=== PATIENT | female | born 1945 | race African-American/Black ===

== ENCOUNTER 2016-03-17 21:15 | Emergency (ER) | payer MEDICARE, MEDICAID ==
[2016-03-17 21:23] VITALS: BP 143/59
[2016-03-17] MEDS ORDERED: Ketorolac INJ* 30 MG/ML 1 ML VIAL IM ONE (21:47)
[2016-03-17] MEDS ORDERED: HYDROcodone/ACETAMIN 5-325 MG* 1 TAB PO ONE ×2 (21:47→22:22)
--- NOTE | 2016-03-17 22:02 | RAD ---
INDICATION: Right shoulder pain COMPARISON: None TECHNIQUE: Routine frontal and Y views were obtained. FINDINGS: There are no acute bony findings. There is a.c. and glenohumeral osteoarthritis and there are findings of calcific tendinitis. The right lung is clear. IMPRESSION: MODERATE OSTEOARTHRITIS WITH CALCIFIC TENDINITIS.
--- NOTE | 2016-03-17 22:50 | ED ---
Kwabena Fox Billy, scribed for Yobani Rodriguez MD on 03/17/16 at 2158 . Upper Extremity Pain - HPI Summary HPI Summary: Patient is a 71 year-old female coming to [facility] presenting with constant posterior right shoulder pain starting tonight. Severity 10/10. Pain is worse with active ROM and touch. She states that the pain began immediately after she lost her balance and fell backwards onto her shoulder. No head injury or LOC. - History of Current Complaint Chief Complaint: EDShoulderClavicleInj Stated Complaint: FALL/ RIGHT SHOULDER PAIN Time Seen by Provider: 03/17/16 21:37 Hx Obtained From: Patient Mechanism Of Injury: Fall From A Standing Position Onset/Duration: Started Hours Ago Timing: Constant Severity Initially: Moderate Severity Currently: Moderate Pain Location: Shoulder Aggravating Factor(s): Movement, Other - touch Alleviating Factor(s): Nothing Associated Signs & Symptoms: Positive: Negative - Allergies/Home Medications Allergies/Adverse Reactions: Allergies Allergy/AdvReac Type Severity Reaction Status Date / Time No Known Allergies Allergy Verified 08/02/12 13:30 PMH/Surg Hx/FS Hx/Imm Hx Cardiovascular History: Reports: Hx Hypertension, Other Cardiovascular Problems/ Disorders - 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 leaky heart valve, mild GI History: Reports: Hx Gastroesophageal Reflux Disease Musculoskeletal History: Reports: Hx Arthritis, Hx Back Problems, Other Musculoskeletal History - degenerative joint disease, disc disease Sensory History: Reports: Hx Vision Problem Opthamlomology History: Reports: Hx Vision Problem Psychiatric History: Reports: Hx Depression - Cancer History Hx Chemotherapy: No Hx Radiation Therapy: No - Surgical History Surgery Procedure, Year, and Place: hysterectomy 30 years ago, abd surgery for removal of benign masses about 6 years ago---All done at [facility] Hx Anesthesia Reactions: No Infectious Disease History: No Infectious Disease History: Denies: Traveled Outside the [place] in Last 30 Days - Family History Known Family History: Positive: Other - FHx of breast cancer. - Social History Alcohol Use: None Substance Use Type: Reports: None Smoking Status (MU): Never Smoked Tobacco Review of Systems Negative: Fever Positive: Arthralgia - right shoulder All Other Systems Reviewed And Are Negative: Yes Physical Exam - Summary Physical Exam Summary: Vital signs: reviewed General: Patient is comfortable lying in stretcher with no signs of distress HEENT: within normal limits Lungs: CTA B/L CVS: S1 & S2 present. No murmurs appreciated. Abdomen: Soft, NT, Positive BS. Extremities: FROM x4, right shoulder w/o ecchymosis or deformity. Good pulses and capillary refill. Neuro: Alert and oriented x 3. No acute neurological deficits. Skin: Warm and dry Triage Information Reviewed: Yes Vital Signs On Initial Exam: Initial Vitals Temp Pulse Resp BP Pulse Ox 98.2 F 63 16 143/59 100 03/17/16 21:20 03/17/16 21:20 03/17/16 21:20 03/17/16 21:20 03/17/16 21:20 Vital Signs Reviewed: Yes Diagnostics - Vital Signs Vital Signs Temp Pulse Resp BP Pulse Ox 03/17/16 21:20 98.2 F 63 16 143/59 100 - Laboratory Lab Statement: Any lab studies that have been ordered have been reviewed, and results considered in the medical decision making process. - Radiology Right Shoulder X-Ray Radiology Interpretation Completed By: Radiologist - MODERATE OSTEOARTHRITIS WITH CALCIFIC TENDINITIS. Course/Dx - Course Assessment/Plan: Patient is a 71 year-old female coming to [facility] presenting with constant posterior right shoulder pain starting tonight. Severity 10/10. Pain is worse with active ROM and touch. She states that the pain began immediately after she lost her balance and fell backwards onto her shoulder. No head injury or LOC. Shoulder x-ray shows no acute fracture or dislocation. In the ED course, she was given Toradol and Forsan, and her symptoms have improved. I did not do a head CT or C spine CT since patient denies any MUNGUIA or neck pain. She denies any LOC. Since there is no fracture or dislocation, she will be discharged home to follow up with PCP. She is hemodynamically stable, A&Ox3. - Diagnoses Provider Diagnoses: Shoulder pain, Calcific tendinitis Discharge - Discharge Plan Condition: Stable Disposition: HOME Patient Education Materials: Shoulder Pain (ED), Calcific Tendinitis (ED) Referrals: Ryan Swain MD [Primary Care Provider] - The documentation as recorded by the Kwabena méndez Billy accurately reflects the service I personally performed and the decisions made by me, Yobani Rodriguez MD.
== END 2016-03-17 22:44 | disposition home or self-care (01) ==
LOC: ED 21:15
DX: S49.91XA Unspecified injury of right shoulder and upper arm, initial encounter (principal); W19.XXXA Unspecified fall, initial encounter; Y93.9 Activity, unspecified; Y92.9 Unspecified place or not applicable; M19.011 Primary osteoarthritis, right shoulder; M75.31 Calcific tendinitis of right shoulder; I10 Essential (primary) hypertension; K21.9 Gastro-esophageal reflux disease without esophagitis
CPT/HCPCS: 96372; 99282; J1885

== ENCOUNTER 2016-07-24 10:29 | Observation (INO) | payer MEDICARE, MEDICAID ==
--- NOTE | 2016-07-24 12:14 | RAD ---
HISTORY: Fall, head injury COMPARISONS: August 02, 2012 TECHNIQUE: Multiple contiguous axial CT scans were obtained of the head without intravenous contrast. FINDINGS: HEMORRHAGE/INFARCT: There is a left frontal subdural hematoma further described below. There is no parenchymal hemorrhage. There is no acute infarct. MASSES/SHIFT: There is a 0.7 cm of subfalcine shift to the right EXTRA-AXIAL SPACES: There is a left frontal convexity subdural hematoma measuring 1.7 cm in depth. This is intermediate attenuation, consistent with a subacute subdural hematoma. There is mass effect on the adjacent brain parenchyma with subfalcine shift to the right. SULCI AND VENTRICLES: There is sulcal effacement along the left frontal subdural hematoma. CEREBRUM: There is a chronic lacunar infarct of the left caudate head. There is a chronic lacunar infarct of the right basal ganglia. BRAINSTEM: There are no focal parenchymal abnormalities. CEREBELLUM: There are no focal parenchymal abnormalities. VESSELS: The vessels are grossly normal. PARANASAL SINUSES: The paranasal sinuses are clear. ORBITS: The orbits are unremarkable. BONES AND SOFT TISSUE: No bone or soft tissue abnormalities are noted. OTHER: None IMPRESSION: SUBACUTE LEFT FRONTAL SUBDURAL HEMATOMA MEASURING 1.7 CM IN DEPTH WITH 0.7 CM OF SUBFALCINE SHIFT TO THE RIGHT. PRELIMINARY FINDINGS WERE DISCUSSED WITH MICH FAITH, IN THE EMERGENCY DEPARTMENT, AT APPROXIMATELY 12:10 PM ON JULY 24, 2016.
--- NOTE | 2016-07-24 12:18 | ED ---
Adult Trauma - HPI Summary HPI Summary: 71F presents with fall out of bed today. She states she was rolling out of bed to get up and landed on the left side of her head and left shoulder. She denies any pain except for her chronic pain in her right shoulder. She is on aggrenox. She denies any headache, vomiting, or nausea. She denies any LOC. She states that the pain in her right shoulder is same as usually. She states she did have a previous stroke on her left side 5 years ago and has chronic weakness on left side. She denies any chest pain, SOB, abdominal pain, lower extremity pain. - History of Current Complaint Chief Complaint: EDGeneral Stated Complaint: FALL Time Seen by Provider: 07/24/16 11:07 Pain Intensity: 0 - Allergy/Home Medications Allergies/Adverse Reactions: Allergies Allergy/AdvReac Type Severity Reaction Status Date / Time No Known Allergies Allergy Verified 08/02/12 13:30 PMH/Surg Hx/FS Hx/Imm Hx Endocrine/Hematology History: Reports: Hx Anticoagulant Therapy Cardiovascular History: Reports: Hx Hypertension, Other Cardiovascular Problems/ Disorders - 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 leaky heart valve, mild GI History: Reports: Hx Gastroesophageal Reflux Disease Musculoskeletal History: Reports: Hx Arthritis, Hx Back Problems, Other Musculoskeletal History - degenerative joint disease, disc disease Sensory History: Reports: Hx Vision Problem Opthamlomology History: Reports: Hx Vision Problem Psychiatric History: Reports: Hx Depression - Cancer History Hx Chemotherapy: No Hx Radiation Therapy: No - Surgical History Surgery Procedure, Year, and Place: hysterectomy 30 years ago, abd surgery for removal of benign masses about 6 years ago---All done at [facility] Hx Anesthesia Reactions: No Infectious Disease History: No Infectious Disease History: Denies: Traveled Outside the [place] in Last 30 Days - Family History Known Family History: Positive: Cardiac Disease, Other - FHx of breast cancer. - Social History Alcohol Use: None Substance Use Type: Reports: None Smoking Status (MU): Never Smoked Tobacco Review of Systems Negative: Fever Negative: Chest Pain Negative: Shortness Of Breath Negative: Vomiting, Nausea Positive: Myalgia - right shoulder pain chronic Negative: Headache All Other Systems Reviewed And Are Negative: Yes Physical Exam Triage Information Reviewed: Yes Vital Signs On Initial Exam: Initial Vitals Temp Pulse Resp BP Pulse Ox 98.8 F 63 16 141/61 97 07/24/16 10:38 07/24/16 10:38 07/24/16 10:38 07/24/16 10:38 07/24/16 10:38 Vital Signs Reviewed: Yes Appearance: Positive: Well-Appearing Skin: Positive: Warm, Dry Head/Face: Positive: Normal Head/Face Inspection, Other - no step off, racoon eyes, gibbs sign Eyes: Positive: Normal, EOMI, DOMINGA, Conjunctiva Clear ENT: Positive: Normal ENT inspection, Pharynx normal, TMs normal Neck: Positive: Nontender, Other: - no neck pain Respiratory/Lung Sounds: Positive: Clear to Auscultation, Breath Sounds Present Cardiovascular: Positive: Normal, RRR Abdomen Description: Positive: Nontender, Soft Musculoskeletal: Positive: Strength/ROM Intact - of all extremities, Other - good pulses Neurological: Positive: Sensory/Motor Intact, Alert, Oriented to Person Place, Time, CN Intact II-III - Ad Coma Scale Best Eye Response: 4 - Spontaneous Best Motor Response: 6 - Obeys Commands Best Verbal Response: 5 - Oriented Coma Scale Total: 15 Diagnostics - Vital Signs Vital Signs Temp Pulse Resp BP Pulse Ox 07/24/16 10:44 98.8 F 63 16 141/61 97 07/24/16 10:38 98.8 F 63 16 141/61 97 - Laboratory Result Diagrams: 07/24/16 12:53 07/24/16 12:53 Lab Statement: Any lab studies that have been ordered have been reviewed, and results considered in the medical decision making process. - CT brain CT Interpretation: Positive (See Comments) - IMPRESSION: SUBACUTE LEFT FRONTAL SUBDURAL HEMATOMA MEASURING 1.7 CM IN DEPTH WITH 0.7 CM OF SUBFALCINE SHIFT TO THE RIGHT. PRELIMINARY FINDINGS WERE DISCUSSED WITH MICH FAITH, IN THE EMERGENCY DEPARTMENT, AT APPROXIMATELY 12:10 PM ON JULY 24, 2016. CT Interpretation Completed By: Radiologist Adult Trauma Course/Dx - Course Course Of Treatment: 71F presents with fall out of bed today onto left side. Is taking aggrenox. denies any pain except chronic right shoulder pain. denies any LOC, nausea or vomiting. normal neuro exam. CT shows subdural. spoke with dr diaz who sent PA to see in ED who will admit. - Diagnoses Differential Diagnosis/HQI/PQRI: Positive: Contusion(s), Fracture, Hematoma(s) Provider Diagnoses: Subdural hematoma - Physician Notifications Discussed Care Of Patient With: dr diaz Time Discussed With Above Provider: 12:44 - will send PA to see in ED Discharge - Discharge Plan Condition: Stable Disposition: ADMITTED TO [facility] Referrals: Ryan Swain MD [Primary Care Provider] -
[2016-07-24 13:23] LABS: Hematocrit 41 % (35-47); Hemoglobin 13.1 g/dl (12.0-16.0); Mean Corpuscular HGB Conc 32 g/dl (31-36); Mean Corpuscular Hemoglobin 29 pg (27-31); Mean Corpuscular Volume 91 fL (80-97); Mean Platelet Volume 9 um3 (7.4-10.4); Red Blood Count 4.52 10^6/ul (4.0-5.4); Red Cell Distribution Width 13 % (10.5-15)
[2016-07-24 13:38] LABS: Albumin 3.8 g/dL (3.2-5.2); BUN/Creatinine Ratio 11.8 (8-20); Calcium 9.3 mg/dL (8.6-10.3); EGFR African American 63.2 (>60); EGFR Non-African American 49.1 (>60); Globulin 3.5 g/dL (2-4); Potassium 4.1 mmol/L (3.5-5.0); Total Bilirubin 0.7 mg/dL (0.2-1.0); Total Protein 7.3 g/dL (6.4-8.9)
--- NOTE | 2016-07-24 14:04 | HP ---
H&P (Free Text) History and Physical: History and Physical Exam Date: 07/24/16 HPI: This is a 71 year old female with past medical history significant for stroke with left upper and lower extremity weakness, HTN, hyperlipidemia, and GERD who presented to the [facility] ED this morning after falling out of bed and landing on her left side on the floor, sustaining a left sided head injury. She is unsure what time she fell out of bed but she denies loss of consciousness and recalls staff coming into her room to assist her. She requested to be brought in for medical evaluation. She denies headache, vision changes, hearing changes, speech changes, difficulty swallowing, neck pain, nausea, vomiting, chest pain, difficulty breathing and numbness, tingling, weakness or pain in the bilateral upper and lower extremities. She has a history of one recent fall approximately one month ago when she fell out of bed, in the same manner as today, landing on her left side and hitting the left side of her head. She states that since that fall, she has experience left sided temporal to frontal headache approximately once per week with duration of about one hour, resolving without treatment although she sometimes will take aspirin. She is unable to identify a trigger for the headaches and they always present in the same distribution and intensity. She states that the pain causes her to close her left eye. She denies vision changes during the headache. She complains of right shoulder pain, present for several months and unrelated to today's or last month's fall. She has not been evaluated for this condition. She reports pain in the shoulder with movement and states that there is a bump near her right shoulder blade. The pain is improved with limited movements of the right arm. Past medical history: 1. CVA with left sided deficits 2. HTN 3. Hyperlipidemia 4. GERD 5. Arthritis Past surgical history: 1. Hysterectomy 2. Abdominal surgery for resection of benign mass Allergies: 1. No known allergies Home medications: 1. Aspirin EC Low Dose* [Aspirin Low Dose EC*] 81 mg PO DAILY 08/02/12 [History Confirmed 07/24/16] 2. Calcium Citrate-Vitamin D [Citracal + D3 Maximum] 1 tab PO DAILY 08/02/12 [ History Confirmed 07/24/16] 3. DULoxetine DR CAP* [Cymbalta CAP*] 30 mg PO DAILY 08/02/12 [History Confirmed 07/24/16] 4. Dipyridamole/Aspirin 25/200* [Aggrenox 25/200*] 1 cap PO DAILY 08/02/12 [ History Confirmed 07/24/16] 5. Ezetimibe TAB* [Zetia TAB*] 10 mg PO DAILY 08/02/12 [History Confirmed ] 6. Omeprazole CAP* [PriLOSEC CAP*] 20 mg PO DAILY 08/02/12 [History Confirmed ] 7. amLODIPine TAB* [Norvasc TAB*] 10 mg PO DAILY 08/02/12 [History Confirmed ] 8. Gabapentin CAP(*) [Neurontin 300 CAP(*)] 300 mg PO TID 07/17/16 [History Confirmed 07/24/16] 9. Diclofenac 1% GEL (NF) [Voltaren 1% GEL (NF)] 1 applic TOPICAL QID PRN [History Confirmed 07/24/16] 10. Fenofibrate Micronized 200 mg PO DAILY 07/24/16 [History Confirmed 07/24/16] 11. Irbesartan (NF) [Avapro (NF)] 300 mg PO DAILY 07/24/16 [History Confirmed ] 12. Pravastatin (NF) [Pravachol (NF)] 80 mg PO DAILY 07/24/16 [History Confirmed 07/24/16] Family history: 1. Cancer- several family members but unable to recall specifics Social history: This patient lives alone at [facility]. She is a former smoker and formerly consumed alcohol; stopped both 47 years ago. ROS: Full ROS completed; pertinent findings stated in HPI and all others negative. Physical Exam: Vital Signs: Temp Pulse Resp BP Pulse Ox 98.8 F 63 16 141/61 97 07/24/16 10:44 07/24/16 10:44 07/24/16 10:44 07/24/16 10:44 07/24/16 10:44 General: Alert and oriented. No distress and no complaints. Laying on the stretcher comfortably. HEENT: Head is normocephalic and atraumatic. No ecchymosis, lacerations or depressions. Head is nontender. PERRLA, EOMI. Gross hearing intact. Moist mucus membranes. Neck: Supple, symmetric and nontender. CV: Pedal pulses palpable. Radial pulses 2+ and equal. Lungs: Breathing is nonlabored. Lungs are clear. Abdomen: Normoactive bowel sounds. Abdomen is soft, nontender and nondistended. Neuro: Speech is clear and coherent. Answers questions appropriately. CN II-XII intact. Strength in left upper and lower extremities 4+/5. Strength in right upper and lower extremities 5/5. Biceps DTR 2+ bilaterally. Patellar DTR 2+ bilaterally. Leggett's reflex positive on the left, negative on the right. Sensation diminished to the left upper and lower extremity. Finger to nose and heel to lopez coordination intact on right and slightly impaired on left. Extremities: Full ROM in upper and lower extremities. Pain with right shoulder adduction and abduction. Pain with palpation of right shoulder. Mild loss of muscle tone in right shoulder. Imagin. CT brain on 07/24/16 shows left subacute subdural hematoma. Assessment: This is a 71 year old female with past medical history significant for HTN, CVA, hyperlipidemia and GERD who presented to the [facility] ED this morning with recent history of falls, one this morning and one about one month ago, both sustaining left sided head injuries. CT brain shows left subacute SDH. Neuro intact with exception of baseline left sided deficits related to previous CVA. No headache. Stable at this time. There is no indication for surgical intervention at this time. Plan: 1. Left subacute subdural hematoma -Admit to short stay surgical for observation -Hold Aggrenox -Neuro checks Q2 hours -Vital signs Q2 hours -Up with assistance -CXR for potential surgery -EKG for potential surgery -Repeat CT brain in morning 07/25 -LR at 75cc/hour -Regular diet -SCDs and incentive spirometry 2. Right shoulder pain -Xray right shoulder 3. PCP is Dr. Swain 4. Full code
--- NOTE | 2016-07-24 14:47 | RAD ---
HISTORY: Preop COMPARISONS: August 02, 2012 VIEWS: Single frontal dual-energy view of the chest FINDINGS: CARDIOMEDIASTINAL SILHOUETTE: The cardiomediastinal silhouette is normal. DWAYNE: The dwayne are normal. PLEURA: The costophrenic angles are sharp. No pleural abnormalities are noted. LUNG PARENCHYMA: The lungs are clear. ABDOMEN: The upper abdomen is clear. There is no subphrenic gas. BONES AND SOFT TISSUES: No bone or soft tissue abnormalities are noted. OTHER: None. IMPRESSION: NO ACTIVE CARDIOPULMONARY DISEASE.
[2016-07-24] MEDS ORDERED: Diclofenac 1% GEL (NF) 100 GM TUBE TOPICAL PRN (15:04)
[2016-07-24] MEDS ORDERED: Ondansetron INJ* 2 MG/ML VIAL IV PRN (15:07)
--- NOTE | 2016-07-24 15:12 | RAD ---
HISTORY: Right shoulder pain COMPARISONS: March 17, 2016 VIEWS: 4, Frontal internal rotation, external rotation, outlet, and axillary views of the right shoulder FINDINGS: BONE DENSITY: Normal. BONES: There is no displaced fracture. JOINTS: There is moderate osteoarthritis of the a.c. and glenohumeral joints ALIGNMENT: There is no dislocation. SOFT TISSUES: There is soft tissue calcification along the greater tuberosity OTHER FINDINGS: None. IMPRESSION: 1. OSTEOARTHRITIS. 2. SOFT TISSUE CALCIFICATIONS SUGGESTIVE OF A CALCIFIC TENDINOPATHY
[2016-07-24] MEDS: Gabapentin CAP(*) 300 MG PO SCH (21:46)
[2016-07-25 03:49] LABS: Urine Bacteria 1+ (Absent); Urine Bilirubin Negative (Negative); Urine Glucose Negative (Negative); Urine Nitrite Positive (Negative)
[2016-07-25] MEDS ORDERED: Omeprazole CAP* 20 MG PO SCH (07:30)
--- NOTE | 2016-07-25 07:48 | RAD ---
HISTORY: Follow-up subdural hematoma COMPARISONS: July 24, 2016 TECHNIQUE: Multiple contiguous axial CT scans were obtained of the head without intravenous contrast. Coronal and sagittal multiplanar reformations are also submitted for review. FINDINGS: HEMORRHAGE/INFARCT: There is no parenchymal hemorrhage. Again noted is a subdural hematoma further described below. There is no acute infarct. MASSES/SHIFT: There is subfalcine shift to the right of approximately 0.9 cm. This is progressed from the previous examination. There is partial uncal herniation on the left. EXTRA-AXIAL SPACES: Again noted is a left frontoparietal subdural hematoma. This measures up to 1.9 cm in depth, decreased from the previous examination. The caudal-rostral extent is also increased. SULCI AND VENTRICLES: There is mass effect upon the left lateral ventricle which is partially effaced. CEREBRUM: Again noted are chronic lacunar infarcts of the basal veins bilaterally BRAINSTEM: There are no focal parenchymal abnormalities. CEREBELLUM: There are no focal parenchymal abnormalities. VESSELS: The vessels are grossly normal. PARANASAL SINUSES: The paranasal sinuses are clear. ORBITS: The orbits are unremarkable. BONES AND SOFT TISSUE: No bone or soft tissue abnormalities are noted. OTHER: None IMPRESSION: INTERVAL PROGRESSION OF LEFT FRONTOPARIETAL SUBDURAL HEMATOMA, HAS INCREASED IN SIZE AND EXTENT WITH INCREASING SUBFALCINE SHIFT AND DEVELOPMENT OF PARTIAL UNCAL HERNIATION ON THE LEFT. ACCORDING TO THE PRELIMINARY REPORT, FINDINGS WERE DISCUSSED WITH DR. WHITE BY DR. CARSON AT APPROXIMATELY 1:52 AM ON JULY 25, 2016
--- NOTE | 2016-07-25 08:17 | PN ---
Progress Note - Progress Note SOAP: Subjective: [This is a 71 year old female who presented to the [facility] ED yesterday after a fall getting out of bed and sustaining injury to the left side of her head. CT brain showed left subacute SDH. She has no complaints of headache, dizziness, vision changes, numbness, tingling or weakness. She states that she feels fine. She has baseline left upper and lower extremity weakness secondary to previous CVA. She is up out of bed with assistance. History of one fall with left side head injury one month ago. Intermittent left side headaches since this fall one month ago. ] Objective: [ Vital Signs: Temp Pulse Resp BP Pulse Ox 98.3 F 64 18 146/52 98 07/25/16 04:57 07/25/16 04:57 07/25/16 07:22 07/25/16 04:57 07/25/16 04:57 General: Alert and oriented. No distress. Neuro: Strength LUE and LLE 4/5, RUE and RLE 5/5. CN II-XII intact. Left sensation diminished, right intact. Left coordination mildly impaired, right intact. Extremities: Full ROM. ] Assessment: [Neurologically stable. Repeat CT brain this morning showed slight increase in subacute SDH. She remains asymptomatic with baseline left side deficits. We discussed brett hole v. home with follow up in 2 weeks. She would like to return home at this time and will follow up in [address] scan.] Plan: [1. Discharge home today. 2. Activity restrictions/cautions were discussed with the patient. 3. Follow up discussed with the patient. 4. We discussed that if she develops new symptoms or sustains additional falls, she should present to the ER. ]
[2016-07-25 08:18] VITALS: BP 130/47
[2016-07-25] MEDS ORDERED: Calcium/Vitamin D TAB 250/125* TAB PO SCH (09:00)
[2016-07-25] MEDS ORDERED: Ezetimibe TAB* 10 MG PO SCH (09:00)
[2016-07-25] MEDS ORDERED: Atorvastatin* 20 MG TAB PO SCH (09:00)
[2016-07-25] MEDS ORDERED: amLODIPine TAB* 5 MG PO SCH (09:00)
[2016-07-25] MEDS ORDERED: FENOFIBRATE MICRONIZED 200 MG PO SCH (09:00)
[2016-07-25] MEDS ORDERED: DULoxetine DR CAP* 30 MG CAP.DR PO SCH (09:00)
[2016-07-25] MEDS ORDERED: Losartan TAB* 25 MG PO SCH (09:00)
[2016-07-25] MEDS: Gabapentin CAP(*) 300 MG PO SCH (09:01)
== END 2016-07-25 09:45 | disposition home or self-care (01) ==
LOC: ED 10:29 → INTOOBSV 15:11 → SSU 15:11
PROVIDERS: ADMIT Neurological Surgery; ATTEND Neurological Surgery
DX: S06.5X0A Traumatic subdural hemorrhage without loss of consciousness, initial encounter (principal); W06.XXXA Fall from bed, initial encounter; Y92.003 Bedroom of unspecified non-institutional (private) residence as the place of occurrence of the external cause; M25.511 Pain in right shoulder; I69.354 Hemiplegia and hemiparesis following cerebral infarction affecting left non-dominant side; I10 Essential (primary) hypertension; E78.5 Hyperlipidemia, unspecified; K21.9 Gastro-esophageal reflux disease without esophagitis; M19.90 Unspecified osteoarthritis, unspecified site; Z79.82 Long term (current) use of aspirin; Z79.899 Other long term (current) drug therapy; Z79.01 Long term (current) use of anticoagulants; Z87.891 Personal history of nicotine dependence; R00.1 Bradycardia, unspecified
CPT/HCPCS: 36415; 70450; 71010; 80053; 81003; 81015; 85025; 85610; 85730; 87077; 87086; 87186; 93005; 99283; A9270-GY; G0378

== ENCOUNTER 2017-03-02 14:39 | Emergency (ER) | payer MEDICARE, MEDICAID ==
[2017-03-02 14:55] VITALS: BP 135/49
--- NOTE | 2017-03-02 15:26 | UC ---
Skin Complaint HPI - HPI Summary HPI Summary: 72 yo female with right arm lumps x mos to yrs They are starting to annoy her thay have not grown in size - History of Current Complaint Chief Complaint: UCSkin Time Seen by Provider: 03/02/17 15:08 Stated Complaint: LUMPS ON RIGHT ARM Hx Obtained From: Patient Onset/Duration: Sudden Onset, Lasting Weeks Onset Severity: Mild Current Severity: Mild Pain Intensity: 0 Pain Scale Used: 0-10 Numeric Location: Discrete Character: Swelling Aggravating Factor(s): Nothing - Allergy/Home Medications Allergies/Adverse Reactions: Allergies Allergy/AdvReac Type Severity Reaction Status Date / Time No Known Allergies Allergy Verified 03/02/17 14:55 Review of Systems Constitutional: Negative Skin: Negative Eyes: Negative ENT: Negative Respiratory: Negative Cardiovascular: Negative Gastrointestinal: Negative Genitourinary: Negative Motor: Negative Neurovascular: Negative Musculoskeletal: Negative Neurological: Negative Psychological: Negative Is Patient Immunocompromised?: No All Other Systems Reviewed And Are Negative: Yes PMH/Surg Hx/FS Hx/Imm Hx Previously Healthy: Yes Cardiovascular History: Hypertension Other History Of: Anticoagulant Therapy - Surgical History Surgical History: Yes Surgery Procedure, Year, and Place: hysterectomy 30 years ago, abd surgery for removal of benign masses about 6 years ago---All done at [facility] [place]ANIAL- 07/2016 - Family History Known Family History: Positive: Cardiac Disease, Other - FHx of breast cancer. - Social History Alcohol Use: None Substance Use Type: None Smoking Status (MU): Former Smoker Type: Cigarettes - Immunization History Most Recent Influenza Vaccination: 2016 Most Recent Tetanus Shot: unknown Most Recent Pneumonia Vaccination: 2017 Physical Exam Triage Information Reviewed: Yes Appearance: Well-Appearing, No Pain Distress, Well-Nourished Vital Signs: Initial Vital Signs Temp 98.9 F 03/02/17 14:51 Pulse 63 03/02/17 14:51 Resp 14 03/02/17 14:51 BP 135/49 03/02/17 14:51 Pulse Ox 98 03/02/17 14:51 Vital Signs Reviewed: Yes ENT: Positive: Hearing grossly normal. Negative: Trismus, Muffled voice, Hoarse voice Respiratory: Positive: Lungs clear, Normal breath sounds, No respiratory distress Cardiovascular: Positive: RRR, No Murmur Skin: Positive: Other - rubbery soft tissue mass noted right upper arm Course/Dx - Diagnoses Provider Diagnoses: lipoma right arm Discharge - Discharge Plan Condition: Stable Disposition: HOME Patient Education Materials: Lipoma (ED) Referrals: Matthew Ferrari MD [Medical Doctor] - 2 Weeks Additional Instructions: I suspect that the soft tissue masses you fell are lipomas If they are bothering you I suggest you see a surgeon
== END 2017-03-02 15:20 | disposition home or self-care (01) ==
LOC: UCEAST 14:39
DX: D17.21 Benign lipomatous neoplasm of skin and subcutaneous tissue of right arm (principal); Z87.891 Personal history of nicotine dependence; I10 Essential (primary) hypertension
CPT/HCPCS: 99211; G0463

== ENCOUNTER 2017-08-03 19:31 | Emergency (ER) | payer MEDICARE, MEDICAID ==
[2017-08-03] MEDS ORDERED: Ibuprofen TAB* 400 MG PO ONE (20:11)
[2017-08-03] MEDS ORDERED: Cyclobenzaprine TAB* 10 MG ONE (20:35)
[2017-08-03] MEDS ORDERED: Cyclobenzaprine TAB* 10 MG PO ONE (20:39)
--- NOTE | 2017-08-03 20:52 | RAD ---
INDICATION: Atraumatic back pain x 1 week COMPARISON: CT abdomen pelvis November 20, 2015 TECHNIQUE: 3 views of the lumbar spine were obtained. FINDINGS: The vertebra are in normal alignment. No fracture is seen. Degenerative changes include loss of intervertebral disc height and bony proliferation of the lower lumbar facets. IMPRESSION: Degenerative changes without evidence of acute fracture or subluxation.
[2017-08-03 21:48] LABS: ABS Basophils 0 10^3/ul (0-0.2); ABS Eosinophils 0.1 10^3/ul (0-0.6); ABS Monocytes 0.8 10^3/ul (0-0.8); ABS Nucleated RBC 0 10^3/ul; Eosinophil % 1.8 % (0-6); Hematocrit 38 % (35-47); Hemoglobin 12.9 g/dl (12.0-16.0); Mean Corpuscular HGB Conc 34 g/dl (31-36); Mean Corpuscular Hemoglobin 29 pg (27-31); Mean Corpuscular Volume 85 fL (80-97); Mean Platelet Volume 8.7 um3 (7.4-10.4); Nucleated Red Blood Cells % 0; Platelet Count 199 10^3/ul (150-450); Red Blood Count 4.45 10^6/ul (4.0-5.4); Red Cell Distribution Width 14 % (10.5-15); White Blood Count 5.9 10^3/ul (3.5-10.8)
[2017-08-03 22:04] LABS: EGFR Non-African American 54.7 (>60)
--- NOTE | 2017-08-03 23:17 | ED ---
Kate Fox Elizabeth, scribed for Navid Ortiz MD on 08/03/17 at 2003 . Back Pain - HPI Summary HPI Summary: This patient is a 72 year old F presenting to [facility] with a chief complaint of lower back pain since 1 day ago. Patient denies any injury and any strenuous activity. The patient notes that the pain has worsened since the onset but the pain does not radiate anywhere. The patient rates the pain 10/10 in severity. Symptoms aggravated by movement. Symptoms alleviated by nothing. Patient denies numbness in the legs, nausea, and abd pain. The patient reports that she has previously been to [facility] with similar symptoms. The patient is currently on several medications but she cannot recall what they are. - History of Current Complaint Stated Complaint: BACK PAIN Time Seen by Provider: 08/03/17 19:54 Hx Obtained From: Patient Onset/Duration: Sudden Onset - 1 day ago, Lasting Days - 1 day ago, Still Present, Worse Since - today Onset/Duration: Started Days Ago - 1 day ago, Atraumatic, Still Present Timing: Constant Back Pain Location: Is Discrete @ - lower back Severity Initially: Mild Severity Currently: Moderate Aggravating Symptom(s): Movement Alleviating Symptom(s): Nothing Associated Signs And Symptoms: Negative: Numbness, Abdominal Pain - Allergies/Home Medications Allergies/Adverse Reactions: Allergies Allergy/AdvReac Type Severity Reaction Status Date / Time No Known Allergies Allergy Verified 03/02/17 14:55 PMH/Surg Hx/FS Hx/Imm Hx Endocrine/Hematology History: Reports: Hx Anticoagulant Therapy Cardiovascular History: Reports: Hx Hypertension, Other Cardiovascular Problems/ Disorders - 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 leaky heart valve, mild GI History: Reports: Hx Gastroesophageal Reflux Disease Musculoskeletal History: Reports: Hx Arthritis, Hx Back Problems, Other Musculoskeletal History - degenerative joint disease, disc disease Sensory History: Reports: Hx Contacts or Glasses, Hx Vision Problem Denies: Hx Hearing Aid Opthamlomology History: Reports: Hx Contacts or Glasses, Hx Vision Problem Psychiatric History: Reports: Hx Depression - Cancer History Hx Chemotherapy: No Hx Radiation Therapy: No - Surgical History Surgery Procedure, Year, and Place: hysterectomy 30 years ago, abd surgery for removal of benign masses about 6 years ago---All done at [facility] [place]. CRANIAL- 07/2016 Hx Anesthesia Reactions: No Infectious Disease History: Denies: Traveled Outside the [place] in Last 30 Days - Family History Known Family History: Positive: Cardiac Disease, Other - FHx of breast cancer. - Social History Alcohol Use: None Substance Use Type: Reports: None Smoking Status (MU): Former Smoker Type: Cigarettes Review of Systems Negative: Epistaxis Negative: Abdominal Pain, Nausea Positive: Other - lower back pain Negative: Weakness, Numbness All Other Systems Reviewed And Are Negative: Yes Physical Exam - Summary Physical Exam Summary: Appearance: Well-appearing, Well-nourished, lying in bed comfortably Skin: Warm, dry, no obvious rash Eyes: sclera anicteric, no conjunctival pallor ENT: mucous membranes moist, pharynx appears normal Neck: Supple, nontender Respiratory: Clear to auscultation, no signs of respiratory distress Cardiovascular: Normal S1, S2. No murmurs. Normal distal pulses in tibial and radial bilaterally. Abdomen: Soft, normal active bowel sounds present. Midline tenderness over mid- lumbar spine. Musculoskeletal: Normal, Strength/ROM Intact. Pain with movement. No muscle spasms. Neurological: A&Ox3, awake and alert, mentation is normal, speech is fluent and appropriate Psychiatric: affect is normal, does not appear anxious or depressed Triage Information Reviewed: Yes Vital Signs On Initial Exam: Initial Vitals Pulse 67 08/03/17 19:35 Vital Signs Reviewed: Yes Diagnostics - Vital Signs Vital Signs Temp Pulse Resp BP Pulse Ox 08/03/17 21:50 69 96 08/03/17 21:49 191/79 08/03/17 21:06 164/81 08/03/17 20:36 171/83 08/03/17 20:06 170/134 08/03/17 20:00 35.3 C 71 20 201/113 97 08/03/17 19:37 67 203/116 97 08/03/17 19:35 67 - Laboratory Lab Results: Lab Results 08/03/17 08/03/17 Range/Units 21:34 21:34 WBC 5.9 (3.5-10.8) 10^3/ul RBC 4.45 (4.0-5.4) 10^6/ul Hgb 12.9 (12.0-16.0) g/dl Hct 38 (35-47) % MCV 85 (80-97) fL MCH 29 (27-31) pg MCHC 34 (31-36) g/dl RDW 14 (10.5-15) % Plt Count 199 (150-450) 10^3/ul MPV 8.7 (7.4-10.4) um3 Neut % (Auto) 50.6 (38-83) % Lymph % (Auto) 33.0 (25-47) % Brooke % (Auto) 13.8 H (0-7) % Eos % (Auto) 1.8 (0-6) % Baso % (Auto) 0.8 (0-2) % Absolute Neuts (auto) 3.0 (1.5-7.7) 10^3/ul Absolute Lymphs (auto) 2.0 (1.0-4.8) 10^3/ul Absolute Monos (auto) 0.8 (0-0.8) 10^3/ul Absolute Eos (auto) 0.1 (0-0.6) 10^3/ul Absolute Basos (auto) 0 (0-0.2) 10^3/ul Absolute Nucleated RBC 0 10^3/ul Nucleated RBC % 0 ESR Pending Sodium 141 (139-145) mmol/L Potassium 3.7 (3.5-5.0) mmol/L Chloride 108 (101-111) mmol/L Carbon Dioxide 25 (22-32) mmol/L Anion Gap 8 (2-11) mmol/L BUN 9 (6-24) mg/dL Creatinine 1.00 H (0.51-0.95) mg/dL Est GFR ( Amer) 70.3 (>60) Est GFR (Non-Af Amer) 54.7 (>60) BUN/Creatinine Ratio 9.0 (8-20) Glucose 97 (70-100) mg/dL Calcium 9.3 (8.6-10.3) mg/dL Result Diagrams: 08/03/17 21:34 08/03/17 21:34 Lab Statement: Any lab studies that have been ordered have been reviewed, and results considered in the medical decision making process. - Radiology Lumbar Spine XR Xray Interpretation: No Acute Changes - IMPRESSION: Degenerative changes without evidence of acute fracture or subluxation. Dr. Ortiz has reviewed this report. Radiology Interpretation Completed By: Radiologist Re-Evaluation - Re-Evaluation First Eval Change: Improved Back Pain Course/Dx - Diagnoses Differential Diagnosis/HQI/PQRI: Positive: Compressive Cord Syndrome, Fracture, Neoplasm, Osteomyelitis, Other - sciatica. Negative: Aneurysm, Cauda Equina Syndrome Provider Diagnoses: Low back pain Discharge - Sign-Out/Discharge Documenting (check all that apply): Discharge/Admit/Transfer - Discharge Plan Condition: Improved Disposition: HOME Prescriptions: Cyclobenzaprine TAB* [Flexeril 10 MG TAB*] 10 mg PO TID PRN #20 tab PRN Reason: Spasms - Back Naproxen TAB* [Naprosyn 375 mg TAB*] 375 mg PO BID PRN #20 tab PRN Reason: Pain Patient Education Materials: Acute Low Back Pain (ED) Referrals: Ryan Swain MD [Primary Care Provider] - - Billing Disposition and Condition Condition: IMPROVED Disposition: HOME The documentation as recorded by the Kate méndez Elizabeth accurately reflects the service I personally performed and the decisions made by , Navid Ortiz MD.
[2017-08-03 23:28] VITALS: BP 177/81
== END 2017-08-03 23:26 | disposition home or self-care (01) ==
LOC: ED 19:31
DX: M54.5 Low back pain (principal); Z87.891 Personal history of nicotine dependence
CPT/HCPCS: 36415; 72100; 80048; 85025; 85652; 99283; A9270-GY

== ENCOUNTER 2017-10-09 18:50 | Emergency (ER) | payer MEDICARE, MEDICAID ==
[2017-10-09] MEDS ORDERED: cloNIDine TAB* 0.1 MG PO ONE (19:30)
--- NOTE | 2017-10-09 19:35 | ED ---
HPI Chest Pain - HPI Summary HPI Summary: This is scribe Dav Jackson documenting for attending Dave Peters MD. This patient is a 72 year old F BIBA to [facility] [place] with a chief complaint of acute on chronic CP since this morning. Patient states she has had the chronic CP for 1 month now. The patient rates the pain 1/10 in severity. Patient reports SOB, chest pressure, and burping (doesnt alleviate her pain). She did not take her BP pills today. Her last stress test was done 4 years ago, which was normal. Patient has no PMHx of [place]. I, Dr. Peters, personally performed the services described in this documentation as scribed in my presence and it is both accurate and complete. - History of Current Complaint Chief Complaint: EDChestPainROMI Time Seen by Provider: 10/09/17 19:18 Hx Obtained From: Patient Onset/Duration: Started Weeks Ago - Worsened this morning. Chornic pain for the past 1 month., Still Present Timing: Constant, Lasting Weeks Initial Severity: Mild Current Severity: Mild Pain Intensity: 1 Pain Scale Used: 0-10 Numeric Character: Pressure/Squeezing - Pressure Associated Signs and Symptoms: Positive: Shortness of Breath, Other: - Belching - Additional Pertinent History Primary Care Physician: [id number] - Allergy/Home Medications Allergies/Adverse Reactions: Allergies Allergy/AdvReac Type Severity Reaction Status Date / Time No Known Allergies Allergy Verified 10/09/17 19:09 PMH/Surg Hx/FS Hx/Imm Hx Endocrine/Hematology History: Reports: Hx Anticoagulant Therapy Cardiovascular History: Reports: Hx Hypertension, Other Cardiovascular Problems/ Disorders - 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 leaky heart valve, mild GI History: Reports: Hx Gastroesophageal Reflux Disease Musculoskeletal History: Reports: Hx Arthritis, Hx Back Problems, Other Musculoskeletal History - degenerative joint disease, disc disease Sensory History: Reports: Hx Contacts or Glasses, Hx Vision Problem Denies: Hx Hearing Aid Opthamlomology History: Reports: Hx Contacts or Glasses, Hx Vision Problem Psychiatric History: Reports: Hx Depression - Cancer History Hx Chemotherapy: No Hx Radiation Therapy: No - Surgical History Surgery Procedure, Year, and Place: hysterectomy 30 years ago, abd surgery for removal of benign masses about 6 years ago---All done at [facility] [place]. CRANIAL- 07/2016 Hx Anesthesia Reactions: No Infectious Disease History: Yes Infectious Disease History: Denies: Traveled Outside the [place] in Last 30 Days - Family History Known Family History: Positive: Cardiac Disease, Other - FHx of breast cancer. - Social History Occupation: Disabled Lives: With Family Alcohol Use: Rare Substance Use Type: Reports: None Smoking Status (MU): Former Smoker Type: Cigarettes Review of Systems Positive: Chest Pain - Chest pressure Positive: Shortness Of Breath Positive: Other - Belching All Other Systems Reviewed And Are Negative: Yes Physical Exam - Summary Physical Exam Summary: VITAL SIGNS: Reviewed. GENERAL: Patient is a well-developed and nourished FEMALE who is lying comfortable in the stretcher. Patient is not in any acute respiratory distress. HEAD AND FACE: No signs of trauma. No ecchymosis, hematomas or skull depressions. No sinus tenderness. EYES: PERRLA, EOMI x 2, No injected conjunctiva, no nystagmus. EARS: Hearing grossly intact. Ear canals and tympanic membranes are within normal limits. MOUTH: Oropharynx within normal limits. NECK: Supple, trachea is midline, no adenopathy, no JVD, no carotid bruit, no c- spine tenderness, neck with full ROM. CHEST: Symmetric, no tenderness at palpation LUNGS: Clear to auscultation bilaterally. No wheezing or crackles. CVS: Regular rate and rhythm, S1 and S2 present, no murmurs or gallops appreciated. ABDOMEN: Soft, non-tender. No signs of distention. No rebound no guarding, and no masses palpated. Bowel sounds are normal. EXTREMITIES: FROM in all major joints, no edema, no cyanosis or clubbing. NEURO: Alert and oriented x 3. No acute neurological deficits. Speech is normal and follows commands. SKIN: Dry and warm Triage Information Reviewed: Yes Vital Signs On Initial Exam: Initial Vitals Temp Pulse Resp BP Pulse Ox 97.8 F 57 28 199/78 98 10/09/17 18:56 10/09/17 18:56 10/09/17 18:56 10/09/17 18:56 10/09/17 18:56 Vital Signs Reviewed: Yes Diagnostics - Vital Signs Vital Signs Temp Pulse Resp BP Pulse Ox 10/09/17 18:56 97.8 F 57 28 199/78 98 - Laboratory Result Diagrams: 10/09/17 19:57 10/09/17 19:57 Lab Statement: Any lab studies that have been ordered have been reviewed, and results considered in the medical decision making process. - Radiology Chest X-Ray Radiology Interpretation Completed By: ED Physician - No acute process. Pending official report. - EKG No standard instances Cardiac Rate: NL - 60 BPM EKG Rhythm: Sinus Rhythm EKG Interpretation: Taken at 19:34 and read at 19:46. Everything normal. Chest Pain Course/Dx - Course Assessment/Plan: Pt hx is atypical for CP. Possible GERD. Pt BP improved. Pt can be D/C home. Prescription for already taking omeprazole 20 mg, we will increase to 40 mg. - Diagnoses Provider Diagnoses: Atypical chest pain, GERD (gastroesophageal reflux disease), Hypertension Discharge - Sign-Out/Discharge Documenting (check all that apply): Patient Departure - Discharge Plan Condition: Stable Disposition: HOME Patient Education Materials: Coronary Artery Disease (DC), Chest Pain (ED), Gastroesophageal Reflux Disease (ED) Referrals: Ryan Swain MD [Primary Care Provider] - (Follow up within 1-2 days.) Additional Instructions: Increase omeprazole from 20 mg a day to 40 mg a day. Make sure to take BP medication. Stress test as outpatient as soon as possible. Follow up within 1-2 days with PCP. RETURN TO THE EMERGENCY DEPARTMENT FOR CHANGING OR WORSENING SYMPTOMS.
[2017-10-09 20:05] LABS: ABS Basophils 0.1 10^3/ul (0-0.2); ABS Eosinophils 0.2 10^3/ul (0-0.6); ABS Lymphocytes 2.6 10^3/ul (1.0-4.8); ABS Monocytes 0.7 10^3/ul (0-0.8); ABS Neutrophils 1.9 10^3/ul (1.5-7.7); ABS Nucleated RBC 0 10^3/ul; Hematocrit 42 % (35-47); Hemoglobin 13.8 g/dl (12.0-16.0); Lymphocyte % 48.1 % (25-47); Mean Corpuscular HGB Conc 33 g/dl (31-36); Mean Corpuscular Hemoglobin 29 pg (27-31); Mean Corpuscular Volume 87 fL (80-97); Nucleated Red Blood Cells % 0.1; Platelet Count 189 10^3/ul (150-450); Red Blood Count 4.77 10^6/ul (4.00-5.40); Red Cell Distribution Width 14 % (10.5-15); White Blood Count 5.4 10^3/ul (3.5-10.8)
[2017-10-09 20:14] LABS: INR 0.92 (0.77-1.02)
[2017-10-09 20:22] LABS: EGFR Non-African American 49.5 (>60)
[2017-10-09] MEDS ORDERED: amLODIPine TAB* 5 MG PO ONE (20:33)
[2017-10-09 21:27] VITALS: BP 136/57
--- NOTE | 2017-10-10 07:00 | RAD ---
INDICATION: Chest pain COMPARISON: Chest x-ray July 24, 2016 TECHNIQUE: Single AP portable view of the chest was obtained. FINDINGS: Image quality is compromised due to the relative inferiority of a portable chest x-ray. The heart and mediastinum exhibit normal size and contour. The lungs are grossly clear. There is no evidence of a large pleural effusion. Visualized bones are normal for the patient's age. IMPRESSION: No radiographic evidence for acute cardiopulmonary abnormality on this portable chest x-ray. R0
== END 2017-10-09 21:30 | disposition home or self-care (01) ==
LOC: ED 18:50
DX: R07.89 Other chest pain (principal); K21.9 Gastro-esophageal reflux disease without esophagitis; I10 Essential (primary) hypertension; Z79.01 Long term (current) use of anticoagulants; Z82.49 Family history of ischemic heart disease and other diseases of the circulatory system; Z80.3 Family history of malignant neoplasm of breast; Z87.891 Personal history of nicotine dependence
CPT/HCPCS: 36415; 71045; 80053; 82550; 83605; 83735; 84484; 85025; 85610; 85730; 93005; 99283; A9270-GY

== ENCOUNTER 2019-04-11 14:18 | Emergency (ER) | payer MEDICARE, MEDICAID ==
--- NOTE | 2019-04-11 14:26 | ED ---
HPI Cardiac - HPI Summary HPI Summary: Pt is a 74 y/o F presenting to the ED brought in by EMS for R-sided chest wall pain. EMS initially thought she had flank pain, but the pt denied any urinary symptoms, aside from decreased output secondary to decreased intake. The pain started about 20 minutes SAMPLE SELECTOR. She denies shortness of breath. - History of Current Complaint Stated Complaint: RIGHT FLANK PAIN PER EMS Time Seen by Provider: 04/11/19 14:19 Hx Obtained From: Patient, EMS Onset/Duration: Started Minutes Ago, Still Present Timing: Constant, Lasting Minutes Initial Severity: Moderate Chest Pain Location: Right Lateral Chest Pain Radiates: No Aggravating Factor(s): Nothing Alleviating Factor(s): Nothing Associated Signs and Symptoms: Positive: Chest Pain, Other: - decreased oral intake, decreased urine output. Negative: Shortness of Breath - Additional Pertinent History Primary Care Physician: [id number] - Allergy/Home Medications Allergies/Adverse Reactions: Allergies Allergy/AdvReac Type Severity Reaction Status Date / Time No Known Allergies Allergy Verified 10/09/17 19:09 PMH/Surg Hx/FS Hx/Imm Hx Previously Healthy: Yes Endocrine/Hematology History: Reports: Hx Anticoagulant Therapy Denies: Hx Diabetes Cardiovascular History: Reports: Hx Angina, Hx Hypercholesterolemia, Hx Hypertension, Other Cardiovascular Problems/Disorders - 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 leaky heart valve, mild Respiratory History: Denies: Hx Asthma, Hx Chronic Obstructive Pulmonary Disease (COPD) - denies GI History: Reports: Hx Gastroesophageal Reflux Disease Musculoskeletal History: Reports: Hx Arthritis, Hx Back Problems, Other Musculoskeletal History - degenerative joint disease, disc disease Sensory History: Reports: Hx Contacts or Glasses, Hx Vision Problem Denies: Hx Hearing Aid Opthamlomology History: Reports: Hx Contacts or Glasses, Hx Vision Problem Psychiatric History: Reports: Hx Depression - Cancer History Hx Chemotherapy: No Hx Radiation Therapy: No - Surgical History Surgery Procedure, Year, and Place: hysterectomy 30 years ago, abd surgery for removal of benign masses about 6 years ago---All done at [facility] [place]. CRANIAL- 07/2016 Hx Anesthesia Reactions: No Infectious Disease History: Reports: Hx Shingles - " a while ago" - Family History Known Family History: Positive: Cardiac Disease, Other - FHx of breast cancer. - Social History Alcohol Use: None Hx Substance Use: No Substance Use Type: Reports: None Hx Tobacco Use: Yes Smoking Status (MU): Former Smoker Type: Cigarettes Review of Systems Positive: Other - decreased oral intake Positive: Chest Pain Negative: Shortness Of Breath All Other Systems Reviewed And Are Negative: Yes Physical Exam - Summary Physical Exam Summary: VITAL SIGNS: Reviewed. GENERAL: Patient is a well-developed and nourished female who is lying comfortable in the stretcher. Patient is not in any acute respiratory distress. HEAD AND FACE: No signs of trauma. No ecchymosis, hematomas or skull depressions. No sinus tenderness. EYES: PERRLA, EOMI x 2, No injected conjunctiva, no nystagmus. EARS: Hearing grossly intact. Ear canals and tympanic membranes are within normal limits. MOUTH: Oropharynx within normal limits. NECK: Supple, trachea is midline, no adenopathy, no JVD, no carotid bruit, no c- spine tenderness, neck with full ROM. CHEST: R-sided rib cage tenderness. LUNGS: Clear to auscultation bilaterally. No wheezing or crackles. CVS: Regular rate and rhythm, S1 and S2 present, no murmurs or gallops appreciated. ABDOMEN: Soft, non-tender. No signs of distention. No rebound, no guarding, and no masses palpated. Bowel sounds are normal. EXTREMITIES: FROM in all major joints, no edema, no cyanosis or clubbing. NEURO: Alert and oriented x 3. No acute neurological deficits. Speech is normal and follows commands. SKIN: Dry and warm. Triage Information Reviewed: Yes Vital Signs Reviewed: Yes Procedures - Sedation Patient Received Moderate/Deep Sedation with Procedure: No Diagnostics - Laboratory Result Diagrams: 04/11/19 14:44 04/11/19 14:44 Lab Statement: Any lab studies that have been ordered have been reviewed, and results considered in the medical decision making process. - Radiology CXR Radiology Interpretation Completed By: Radiologist Summary of Radiographic Findings: No evidence for active cardiopulmonary disease is noted. ED physician has reviewed this report. Rib XR Radiology Interpretation Completed By: Radiologist Summary of Radiographic Findings: No evidence for fracture. ED physician has reviewed this report. - EKG 1514 Cardiac Rate: Other Rate - 64 a-paced Summary of EKG Findings: EKG at 1415 shows atrial paced rhythm at 64bpm. No further evaluation done. Dr. Rodriguez has reviewed and interpreted this report 1436 Cardiac Rate: Bradycardia - 59 EKG Rhythm: Sinus Bradycardia ST Segment: Normal Ectopy: None EKG Comparison: No Significant Change Summary of EKG Findings: EKG at 1436 shows sinus bradycardia at 59bpm with no ST elevations. No STEMI. No change from 10/09/17. Dr. Rodriguez has reviewed and interpreted this EKG. Disposition - Course Assessment/Plan: Pt is a 74 y/o F presenting to the ED brought in by EMS for R- sided chest wall pain. EMS initially thought she had flank pain, but the pt denied any urinary symptoms, aside from decreased output secondary to decreased intake. The pain started about 20 minutes SAMPLE SELECTOR. She denies shortness of breath. In the ED course the patient was placed in a monitor technician, IV access was obtained. Blood test w/o a significant abnormality except for glucose of 107, troponin 0.03 which is her normal. BNP is 253. Chest x-ray impression: No acute cardiopulmonary process. X-ray of the right rib cage negative for fracture dislocation. Urinalysis positive for UTI. The patient will be given a prescription for Bactrim. The patient continues to be asymptomatic. She has no pain at this point. I discussed all the findings and test results with the patient. Patient was instructed to return to the emergency room immediately if any of the symptoms return worsens. Plan of care was discussed with the patient and understands and agrees. All questions were answered at patient satisfaction. There were no further complaints or concerns. Lung exam before discharge: CTA B/L. Good air exchange. No wheezing or crackles heard. CVS: S1 and S2 present. No murmurs appreciated. Patient is alert and oriented x 3. Patient is hemodynamically stable. Patient will be discharged home with follow up PCP in the next 2-3 days - Diagnoses Provider Diagnoses: Rib pain on right side, UTI (urinary tract infection) Discharge ED - Sign-Out/Discharge Documenting (check all that apply): Patient Departure - Discharge Plan Condition: Stable Disposition: HOME Prescriptions: Sulfamethox/Trimethoprim DS* [Bactrim DS 800/160 TAB*] 1 tab PO BID #14 tab Patient Education Materials: Urinary Tract Infection in Women (ED), Rib Contusion (ED) Referrals: Ryan Swain MD [Primary Care Provider] - Additional Instructions: Follow up with your primary care provider in the next 2-3 days. Return to the emergency department with any new or worsening symptoms. - Billing Disposition and Condition Condition: STABLE Disposition: Home - Attestation Statements Document Initiated by Scribe: Yes Documenting Scribe: Melissa Ramirez Provider For Whom Abbey is Documenting (Include Credential): Yobani Rodriguez MD. Scribe Attestation: Melissa Fox, scribed for Yobani Rodriguez MD. on 04/11/19 at 1857. Scribe Documentation Reviewed: Yes Provider Attestation: The documentation as recorded by the scribe, Melissa Ramirez accurately reflects the service I personally performed and the decisions made by , Yobani Rodriguez MD. Status of Scribe Document: Viewed
[2019-04-11 14:50] LABS: ABS Basophils 0.1 10^3/ul (0-0.2); ABS Eosinophils 0.1 10^3/ul (0-0.6); ABS Lymphocytes 1.8 10^3/ul (1.0-4.8); ABS Monocytes 0.7 10^3/ul (0-0.8); ABS Neutrophils 4.1 10^3/ul (1.5-7.7); Eosinophil % 1.4 %; Hematocrit 41 % (35-47); Hemoglobin 14.1 g/dL (12.0-16.0); Lymphocyte % 26.6 %; Mean Corpuscular HGB Conc 34 g/dL (31-36); Mean Corpuscular Hemoglobin 30 pg (27-31); Mean Corpuscular Volume 87 fL (80-97); Mean Platelet Volume 8.6 fL (7.4-10.4); Nucleated Red Blood Cells % 0.1; Platelet Count 232 10^3/uL (150-450); Red Blood Count 4.76 10^6 /uL (3.70-4.87); Red Cell Distribution Width 14 % (10-15); White Blood Count 6.7 10^3/uL (3.5-10.8)
[2019-04-11 15:07] LABS: ALT 20 U/L (7-52); AST 26 U/L (13-39); Albumin 4.3 g/dL (3.2-5.2); Albumin/Globulin Ratio 1.3 (1-3); Alkaline Phosphatase 68 U/L (34-104); Anion Gap 9 mmol/L (2-11); BUN/Creatinine Ratio 11.1 (8-20); Blood Urea Nitrogen 11 mg/dL (6-24); CO2 Carbon Dioxide 23 mmol/L (22-32); Calcium 9.3 mg/dL (8.6-10.3); Chloride 105 mmol/L (101-111); Creatine Kinase 81 U/L (10-223); EGFR African American 66.5 (>60); Globulin 3.4 g/dL (2-4); Glucose 107 mg/dL (70-100); Magnesium 2.1 mg/dL (1.9-2.7); Potassium 4.3 mmol/L (3.5-5.0); Sodium 137 mmol/L (135-145); Total Protein 7.7 g/dL (6.4-8.9)
[2019-04-11 15:32] LABS: Troponin I 0.03 ng/mL (<0.03)
[2019-04-11 15:43] LABS: TSH (Thyroid Stimulating Horm) 1.68 mcIU/mL (0.34-5.60)
[2019-04-11 15:52] LABS: Urine Appearance Cloudy; Urine Bilirubin Negative (Negative); Urine Blood Negative (Negative); Urine Color Yellow; Urine Glucose Negative (Negative); Urine Ketones Negative (Negative); Urine Nitrite Positive (Negative); Urine Protein Negative (Negative); Urine Specific Gravity 1.008 (1.010-1.030); Urine Urobilinogen Negative (Negative)
[2019-04-11 15:54] LABS: Urine Bacteria 1+ (Absent); Urine Red Blood Cell Absent (Absent); Urine Squamous Epithelial Cell Present (Absent); Urine White Blood Cell Trace(0-5/hpf) (Absent)
[2019-04-11 15:57] VITALS: BP 168/84
--- NOTE | 2019-04-14 10:43 | ED ---
Imaging and Labs Follow Up Follow Up Type: Labs/Cultures Labs/Culture Result: Urine culture final grew Escherichia coli Patient Communication/Plan: Patient was rx Bactrim prior to discharge Patient Communication/Plan: This is sensitive organism, nothing further required Provider Diagnoses: Rib pain on right side, UTI (urinary tract infection)
== END 2019-04-11 15:54 | disposition home or self-care (01) ==
LOC: ED 14:18
DX: R07.81 Pleurodynia (principal); N39.0 Urinary tract infection, site not specified; E78.00 Pure hypercholesterolemia, unspecified; I10 Essential (primary) hypertension; K21.9 Gastro-esophageal reflux disease without esophagitis; F32.9 Major depressive disorder, single episode, unspecified; Z90.710 Acquired absence of both cervix and uterus; Z87.891 Personal history of nicotine dependence
CPT/HCPCS: 36415; 71046; 80053; 81003; 81015; 82550; 83605; 83735; 83880; 84443; 84484; 85025; 87077; 87086; 87186; 93005; 99282

== ENCOUNTER 2020-07-18 17:45 | Observation (INO) ==
[2020-07-18 19:24] LABS: ABS Eosinophils 0.1 10^3/ul (0-0.6); ABS Lymphocytes 1.5 10^3/ul (1.0-4.8); ABS Monocytes 0.6 10^3/ul (0-0.8); ABS Neutrophils 1.6 10^3/ul (1.5-7.7); Eosinophil % 1.6 %; Hematocrit 39 % (35-47); Hemoglobin 12.8 g/dL (12.0-16.0); Lymphocyte % 38.9 %; Mean Corpuscular HGB Conc 33 g/dL (31-36); Mean Corpuscular Hemoglobin 29 pg (27-31); Mean Corpuscular Volume 88 fL (80-97); Mean Platelet Volume 8.7 fL (7.4-10.4); Platelet Count 207 10^3/uL (150-450); Red Blood Count 4.38 10^6 /uL (3.70-4.87); Red Cell Distribution Width 14 % (10-15); White Blood Count 3.8 10^3/uL (3.5-10.8)
[2020-07-18 19:44] LABS: INR 1.1 (0.82-1.09)
[2020-07-18 19:59] LABS: ALT 20 U/L (7-52); AST 23 U/L (13-39); Albumin 3.9 g/dL (3.2-5.2); Albumin/Globulin Ratio 1.3 (1-3); Alkaline Phosphatase 62 U/L (34-104); Anion Gap 9 mmol/L (2-11); Blood Urea Nitrogen 12 mg/dL (6-24); CO2 Carbon Dioxide 23 mmol/L (22-32); Chloride 107 mmol/L (101-111); EGFR African American 68.7 (>60); EGFR Non-African American 56.8 (>60); Glucose 91 mg/dL (70-100); Potassium 3.7 mmol/L (3.5-5.0); Sodium 139 mmol/L (135-145); Total Protein 6.9 g/dL (6.4-8.9)
[2020-07-18 20:04] LABS: Troponin I 0.03 ng/mL (<0.03)
[2020-07-18] MEDS ORDERED: Enalaprilat IV 1.25 mg/ml 2 ml VIAL (2.5 MG) IV ONE (20:05)
[2020-07-18] MEDS: hydrALAZINE 20 mg/ml 1 ML Vial IV IV SLOW PU PRN (23:38)
[2020-07-19 01:06] LABS: Troponin I 0.03 ng/mL (<0.03)
[2020-07-19] MEDS ORDERED: Nitro 2% OINT (Nitroglycerin) 1 INCH/PAK TOPICAL ONE (01:11)
[2020-07-19] MEDS ORDERED: Heparin DRIP 25,000 UNITS BAG 25,000 UNITS/500 ML BAG IV SCH (01:15)
[2020-07-19] MEDS ORDERED: Heparin 5000 UNITS/ML 1 mL VIAL IV SCH (02:00)
[2020-07-19 04:35] LABS: Troponin I 0.04 ng/mL (<0.03)
[2020-07-19 08:13] LABS: Troponin I 0.04 ng/mL (<0.03)
[2020-07-19] MEDS ORDERED: DULoxetine DR 30 mg CAP PO SCH (09:00)
[2020-07-19] MEDS ORDERED: Aminophylline 25 MG/ML VIAL ONE (10:45)
[2020-07-19] MEDS ORDERED: Regadenoson 0.4 MG/5 ML SYRINGE ONE (10:45)
[2020-07-19 10:52] LABS: Troponin I 0.04 ng/mL (<0.03)
[2020-07-19] MEDS ORDERED: hydrALAZINE 20 mg/ml 1 ML Vial IV ONE (11:01)
[2020-07-19] MEDS: hydrALAZINE 20 mg/ml 1 ML Vial IV IV SLOW PU PRN ×2 (11:03→11:04)
[2020-07-19 19:24] VITALS: BP 157/66
== END 2020-07-19 18:50 | disposition home or self-care (01) ==
LOC: MEDTELE 17:45 → ED 17:45 → MEDTELE 22:52
PROVIDERS: ADMIT Student in an Organized Health Care Education/Training Program; ATTEND Hospitalist

== ENCOUNTER 2020-07-19 23:52 | Inpatient (IN) ==
[2020-07-20 01:09] LABS: ABS Lymphocytes 0.7 10^3/ul (1.0-4.8); ABS Neutrophils 10.3 10^3/ul (1.5-7.7); Hematocrit 39 % (35-47); Mean Corpuscular HGB Conc 34 g/dL (31-36); Mean Corpuscular Hemoglobin 30 pg (27-31); Mean Corpuscular Volume 88 fL (80-97); Platelet Count 222 10^3/uL (150-450); Red Cell Distribution Width 15 % (10-15); White Blood Count 12.1 10^3/uL (3.5-10.8)
[2020-07-20 01:20] LABS: ALT 23 U/L (7-52); Albumin 4.2 g/dL (3.2-5.2); Albumin/Globulin Ratio 1.4 (1-3); Alkaline Phosphatase 65 U/L (34-104); Blood Urea Nitrogen 18 mg/dL (6-24); CO2 Carbon Dioxide 21 mmol/L (22-32); Calcium 9.7 mg/dL (8.6-10.3); Chloride 107 mmol/L (101-111); EGFR African American 57.5 (>60); EGFR Non-African American 47.6 (>60); Globulin 3.1 g/dL (2-4); Glucose 166 mg/dL (70-100); Magnesium 1.9 mg/dL (1.9-2.7); Sodium 137 mmol/L (135-145); Total Protein 7.3 g/dL (6.4-8.9)
[2020-07-20 01:50] LABS: Troponin I 0.06 ng/mL (<0.03)
[2020-07-20 02:13] LABS: AST 30 U/L (13-39); Anion Gap 9 mmol/L (2-11); Potassium 3.8 mmol/L (3.5-5.0)
[2020-07-20 03:01] LABS: Urine Appearance Cloudy; Urine Bilirubin Negative (Negative); Urine Blood 1+ (Negative); Urine Color Yellow; Urine Glucose Negative (Negative); Urine Ketones Negative (Negative); Urine Nitrite Positive (Negative); Urine Protein 1+(30 mg/dL) (Negative); Urine Specific Gravity 1.025 (1.002-1.030); Urine Urobilinogen Negative (Negative)
[2020-07-20 03:21] LABS: Urine Bacteria 3+ (Absent); Urine Granular Casts Present (Absent); Urine Red Blood Cell Trace(0-2/hpf) (Absent); Urine Squamous Epithelial Cell Present (Absent); Urine White Blood Cell 2+(11-20/hpf) (Absent)
[2020-07-20] MEDS ORDERED: cefTRIAXone 1 gm/50 mL NS BAG 1 GM/50 ML BAG IV ONE (03:34)
[2020-07-20] MEDS ORDERED: Iodixanol (CONTRAST) 320 MG/ML 100 ML SDV IV ONE (04:56)
[2020-07-20 05:24] LABS: Troponin I 0.07 ng/mL (<0.03)
[2020-07-20] MEDS: Aspirin EC 81 mg TAB.EC (enteric coated) PO SCH ×2 (08:13→08:23)
[2020-07-20] MEDS: Heparin 5000 UNITS/ML 1 mL VIAL SUBCUT SCH ×3 (08:13→21:21)
[2020-07-20] MEDS: DULoxetine DR 30 mg CAP PO SCH (08:13)
[2020-07-20 11:05] LABS: ABS Lymphocytes 1.3 10^3/ul (1.0-4.8); ABS Monocytes 0.9 10^3/ul (0-0.8); ABS Neutrophils 5.2 10^3/ul (1.5-7.7); Eosinophil % 0.2 %; Hematocrit 37 % (35-47); Hemoglobin 12.3 g/dL (12.0-16.0); Lymphocyte % 17.8 %; Mean Corpuscular HGB Conc 33 g/dL (31-36); Mean Corpuscular Hemoglobin 29 pg (27-31); Mean Corpuscular Volume 89 fL (80-97); Mean Platelet Volume 8.7 fL (7.4-10.4); Platelet Count 213 10^3/uL (150-450); Red Blood Count 4.22 10^6 /uL (3.70-4.87); Red Cell Distribution Width 15 % (10-15); White Blood Count 7.5 10^3/uL (3.5-10.8)
[2020-07-20 11:18] LABS: INR 1.13 (0.82-1.09)
[2020-07-20 11:28] LABS: Anion Gap 9 mmol/L (2-11); CO2 Carbon Dioxide 20 mmol/L (22-32); Calcium 9.4 mg/dL (8.6-10.3); Chloride 107 mmol/L (101-111); Potassium 3.5 mmol/L (3.5-5.0); Sodium 136 mmol/L (135-145)
[2020-07-20 11:33] LABS: Blood Urea Nitrogen 14 mg/dL (6-24); C Reactive Protein 10.17 mg/L (<8.01); EGFR African American 72.2 (>60); EGFR Non-African American 59.7 (>60); Glucose 117 mg/dL (70-100)
[2020-07-20 11:42] LABS: Troponin I 0.04 ng/mL (<=0.02)
[2020-07-20 12:24] LABS: Vitamin B12 298 pg/mL (180-914)
[2020-07-20 12:28] LABS: Vitamin D Total 25(OH) 37.8 ng/mL (20-50)
[2020-07-21] MEDS: cefTRIAXone 1 gm/50 mL NS BAG 1 GM/50 ML BAG IVPB SCH (04:21)
[2020-07-21] MEDS: Heparin 5000 UNITS/ML 1 mL VIAL SUBCUT SCH ×2 (05:32→13:33)
[2020-07-21 08:47] LABS: ABS Monocytes 0.6 10^3/ul (0-0.8); ABS Neutrophils 4.9 10^3/ul (1.5-7.7); Eosinophil % 0.3 %; Hematocrit 40 % (35-47); Hemoglobin 13.2 g/dL (12.0-16.0); Lymphocyte % 15.5 %; Mean Corpuscular HGB Conc 33 g/dL (31-36); Mean Corpuscular Hemoglobin 29 pg (27-31); Mean Corpuscular Volume 88 fL (80-97); Mean Platelet Volume 8.9 fL (7.4-10.4); Nucleated Red Blood Cells % 0.1; Platelet Count 210 10^3/uL (150-450); Red Blood Count 4.49 10^6 /uL (3.70-4.87); Red Cell Distribution Width 15 % (10-15); White Blood Count 6.6 10^3/uL (3.5-10.8)
[2020-07-21] MEDS ORDERED: Pneumococcal Vac 23-Polyvalent IM ONE (09:00)
[2020-07-21 09:01] LABS: Calcium 9.6 mg/dL (8.6-10.3); EGFR Non-African American 63.6 (>60); Magnesium 1.9 mg/dL (1.9-2.7); Potassium 3.8 mmol/L (3.5-5.0)
[2020-07-21] MEDS: DULoxetine DR 30 mg CAP PO SCH (09:17)
[2020-07-21] MEDS: Aspirin EC 81 mg TAB.EC (enteric coated) PO SCH (09:23)
[2020-07-22] MEDS: cefTRIAXone 1 gm/50 mL NS BAG 1 GM/50 ML BAG IVPB SCH (04:06)
[2020-07-22] MEDS: DULoxetine DR 30 mg CAP PO SCH (08:07)
[2020-07-23] MEDS: cefTRIAXone 1 gm/50 mL NS BAG 1 GM/50 ML BAG IVPB SCH (04:07)
[2020-07-23] MEDS: DULoxetine DR 30 mg CAP PO SCH (07:37)
[2020-07-23 08:14] LABS: ABS Eosinophils 0.1 10^3/ul (0-0.6); ABS Lymphocytes 1.4 10^3/ul (1.0-4.8); ABS Monocytes 0.9 10^3/ul (0-0.8); ABS Neutrophils 3.4 10^3/ul (1.5-7.7); Eosinophil % 1.5 %; Hematocrit 36 % (35-47); Hemoglobin 12.1 g/dL (12.0-16.0); Lymphocyte % 24.1 %; Mean Corpuscular HGB Conc 34 g/dL (31-36); Mean Corpuscular Hemoglobin 30 pg (27-31); Mean Corpuscular Volume 88 fL (80-97); Platelet Count 205 10^3/uL (150-450); Red Cell Distribution Width 15 % (10-15); White Blood Count 5.8 10^3/uL (3.5-10.8)
[2020-07-23 08:35] LABS: Calcium 8.8 mg/dL (8.6-10.3); EGFR African American 74.1 (>60); EGFR Non-African American 61.2 (>60); Potassium 3.4 mmol/L (3.5-5.0)
[2020-07-23] MEDS ORDERED: Potassium Chlor 20 meq TAB.ER PO ONE (09:26)
[2020-07-24] MEDS: cefTRIAXone 1 gm/50 mL NS BAG 1 GM/50 ML BAG IVPB SCH (04:12)
[2020-07-24] MEDS: DULoxetine DR 30 mg CAP PO SCH (07:42)
[2020-07-24 11:53] VITALS: BP 135/61
== END 2020-07-24 14:40 | disposition home health service (06) ==
LOC: ED 23:52 → MEDTELE 07-20 04:03
PROVIDERS: ADMIT Student in an Organized Health Care Education/Training Program; ATTEND Hospitalist

== ENCOUNTER 2020-08-18 11:26 | Inpatient (IN) ==
[2020-08-18 13:46] LABS: ABS Basophils 0.1 10^3/ul (0-0.2); ABS Eosinophils 0.1 10^3/ul (0-0.6); ABS Lymphocytes 1.9 10^3/ul (1.0-4.8); ABS Monocytes 0.6 10^3/ul (0-0.8); ABS Neutrophils 3.1 10^3/ul (1.5-7.7); Eosinophil % 1.2 %; Hematocrit 38 % (35-47); Hemoglobin 12.7 g/dL (12.0-16.0); Lymphocyte % 33.1 %; Mean Corpuscular HGB Conc 33 g/dL (31-36); Mean Corpuscular Hemoglobin 30 pg (27-31); Mean Corpuscular Volume 90 fL (80-97); Mean Platelet Volume 8.7 fL (7.4-10.4); Nucleated Red Blood Cells % 0.1; Platelet Count 212 10^3/uL (150-450); Red Blood Count 4.26 10^6 /uL (3.70-4.87); Red Cell Distribution Width 15 % (10-15); White Blood Count 5.8 10^3/uL (3.5-10.8)
[2020-08-18 14:02] LABS: Activated Partial Thrombo Time 27.6 seconds (26.0-38.0); INR 1.16 (0.82-1.09)
[2020-08-18 14:03] LABS: ALT 14 U/L (7-52); AST 23 U/L (13-39); Albumin 3.6 g/dL (3.2-5.2); Albumin/Globulin Ratio 1.1 (1-3); Alkaline Phosphatase 82 U/L (35-149); Anion Gap 7 mmol/L (2-11); Blood Urea Nitrogen 14 mg/dL (6-24); CO2 Carbon Dioxide 25 mmol/L (22-32); Calcium 9.3 mg/dL (8.6-10.3); Chloride 107 mmol/L (101-111); EGFR Non-African American 64.5 (>60); Globulin 3.4 g/dL (2-4); Glucose 86 mg/dL (70-100); Magnesium 1.8 mg/dL (1.9-2.7); Potassium 3.8 mmol/L (3.5-5.0); Sodium 139 mmol/L (135-145)
[2020-08-18 14:08] LABS: Troponin I 0.04 ng/mL (<0.03)
[2020-08-18 14:12] LABS: Urine Appearance Cloudy; Urine Bilirubin Negative (Negative); Urine Blood Negative (Negative); Urine Color Yellow; Urine Glucose Negative (Negative); Urine Ketones Trace (Negative); Urine Nitrite Negative (Negative); Urine Protein Negative (Negative); Urine Specific Gravity 1.011 (1.002-1.030); Urine Urobilinogen Negative (Negative)
[2020-08-18 14:49] LABS: TSH Ultra Thyroid Stim Horm 1.35 mcIU/mL (0.34-5.60)
[2020-08-18 16:07] LABS: Creatine Kinase 127 U/L (10-223)
[2020-08-19] MEDS: DULoxetine DR 30 mg CAP PO SCH (09:42)
[2020-08-19] MEDS: Polyethylene Glycol 3350 17 GM PACKET PO SCH (09:46)
[2020-08-20 08:45] LABS: Anion Gap 6 mmol/L (2-11); Blood Urea Nitrogen 9 mg/dL (6-24); CO2 Carbon Dioxide 26 mmol/L (22-32); Calcium 9.2 mg/dL (8.6-10.3); Chloride 108 mmol/L (101-111); EGFR Non-African American 74.4 (>60); Glucose 111 mg/dL (70-100); Potassium 3.7 mmol/L (3.5-5.0); Sodium 140 mmol/L (135-145)
[2020-08-20 08:49] LABS: Troponin I 0.04 ng/mL (<0.03)
[2020-08-20] MEDS: Polyethylene Glycol 3350 17 GM PACKET PO SCH (08:57)
[2020-08-20] MEDS: DULoxetine DR 30 mg CAP PO SCH (08:57)
[2020-08-20 09:36] LABS: Vitamin B12 614 pg/mL (180-914)
[2020-08-20 10:56] LABS: Magnesium 1.8 mg/dL (1.9-2.7)
[2020-08-20 11:56] VITALS: BP 131/47
[2020-08-22 11:06] LABS: RPR Reactive (Nonreactive)
== END 2020-08-20 12:55 | disposition home health service (06) | DRG 66 ==
LOC: ED 11:26 → MEDTELE 16:50
PROVIDERS: ADMIT Internal Medicine; ATTEND Internal Medicine

== ENCOUNTER 2022-10-18 15:50 | Inpatient (IN) ==
[2022-10-18] MEDS ORDERED: Morphine 4 MG/ML VIAL (1 ml) IV ONE (16:56)
[2022-10-18 19:34] LABS: ABS Lymphocytes 1.1 10^3/uL (1.0-4.8); ABS Monocytes 1.3 10^3/uL (0.0-0.9); ABS Neutrophils 7.4 10^3/uL (1.5-7.6); ABS Nucleated RBC 0.02 10^3/ul; Hematocrit 44.7 % (35-45); Hemoglobin 15.3 g/dL (11.5-14.3); Lymphocyte % 10.8 %; Mean Corpuscular Hemoglobin 28.4 pg (27-33); Mean Corpuscular Hgb Conc 34.3 g/dL (31-36); Mean Corpuscular Volume 82.7 fL (80-97); Mean Platelet Volume 7.6 fL (7.5-11.2); Nucleated Red Blood Cells % 0.2 /100 WBC (0.0-0.4); Platelet Count 369 10^3/uL (150-450); Red Blood Count 5.41 10^6/uL (3.63-4.92); Red Cell Distribution Width 13.9 % (12-17); White Blood Count 9.9 10^3/uL (3.8-11.8)
[2022-10-18 19:53] LABS: Albumin 4.4 g/dL (3.2-5.2); Calcium 10.2 mg/dL (8.6-10.3); Creatinine, Serum 1.85 mg/dL (0.51-0.95); Globulin 4.6 g/dL (2-4); Potassium 3.3 mmol/L (3.5-5.0); Total Bilirubin 0.8 mg/dL (0.2-1.0); eGFR CKD-EPI 27.9 (>60)
[2022-10-18] MEDS ORDERED: Lactated Ringers 1000 ml BAG 1,000 ML IV ONE (22:49)
[2022-10-18] MEDS ORDERED: Levalbuterol 0.63MG/3ML NEB UNIT OF USE INH PRN (22:55)
[2022-10-18] MEDS ORDERED: Levalbuterol 0.63MG/3ML NEB UNIT OF USE INH ONE (22:55)
[2022-10-18] MEDS ORDERED: Lactated Ringers 1000 ml BAG 1,000 ML IV SCH (23:00)
[2022-10-18 23:08] LABS: Magnesium 2.4 mg/dL (1.9-2.7)
[2022-10-19] MEDS ORDERED: Potassium Chlor 20 meq TAB.ER PO ONE (00:17)
[2022-10-19 01:42] LABS: Urine Appearance Cloudy; Urine Bilirubin Negative (Negative); Urine Blood 2+ (Negative); Urine Color Amber; Urine Glucose Negative (Negative); Urine Ketones 1+ (Negative); Urine Nitrite Negative (Negative); Urine Protein 3+(>=500 mg/dL) (Negative); Urine Specific Gravity 1.025 (1.002-1.030); Urine Urobilinogen Negative (Negative)
[2022-10-19 02:10] LABS: Urine Amorphous Crystals Present (Absent); Urine Bacteria 1+ (Absent); Urine Red Blood Cell 1+(3-5/hpf) (Absent); Urine Squamous Epithelial Cell Present (Absent); Urine White Blood Cell 1+(6-10/hpf) (Absent); Urine Yeast Present (Absent)
[2022-10-19] MEDS: Nystatin SUSPENSION 100,000 UNITS/ML UDC PO SCH ×5 (03:27→21:40)
[2022-10-19] MEDS: Enoxaparin 30 MG/0.3 ML SYR SUBCUT SCH (03:31)
[2022-10-19 08:23] LABS: ABS Basophils 0.1 10^3/uL (0.0-0.1); ABS Monocytes 1.5 10^3/uL (0.0-0.9); ABS Neutrophils 6.9 10^3/uL (1.5-7.6); ABS Nucleated RBC 0.01 10^3/ul; Eosinophil % 0.3 %; Hematocrit 40.8 % (35-45); Hemoglobin 14.2 g/dL (11.5-14.3); Lymphocyte % 10.7 %; Mean Corpuscular Hemoglobin 28.5 pg (27-33); Mean Corpuscular Hgb Conc 34.8 g/dL (31-36); Mean Corpuscular Volume 81.9 fL (80-97); Mean Platelet Volume 7.8 fL (7.5-11.2); Nucleated Red Blood Cells % 0.1 /100 WBC (0.0-0.4); Platelet Count 311 10^3/uL (150-450); Red Blood Count 4.98 10^6/uL (3.63-4.92); White Blood Count 9.5 10^3/uL (3.8-11.8)
[2022-10-19 08:52] LABS: Calcium 9.5 mg/dL (8.6-10.3); Creatinine, Serum 1.54 mg/dL (0.51-0.95); Magnesium 2.2 mg/dL (1.9-2.7); Potassium 2.9 mmol/L (3.5-5.0); eGFR CKD-EPI 34.8 (>60)
[2022-10-19] MEDS: DULoxetine DR 30 mg CAP PO SCH (09:21)
[2022-10-19] MEDS: Polyethylene Glycol 3350 17 GM PACKET PO SCH (09:21)
[2022-10-19] MEDS: Aspirin EC 81 mg TAB.EC (enteric coated) PO SCH (09:21)
[2022-10-19] MEDS ORDERED: Potassium EFFERVES 25 meq TAB PO ONE ×2 (10:17→13:32)
[2022-10-19] MEDS ORDERED: Potassium Chloride LIQUID 20 MEQ/15 ML LIQUID PO ONE (14:36)
[2022-10-19] MEDS: Ondansetron 4 mg VIAL 2 MG/ML 2 ml VIAL IV PRN (14:50)
[2022-10-19] MEDS ORDERED: Potassium Acid Phos 500 mg TAB PO ONE (15:27)
[2022-10-20] MEDS: Enoxaparin 30 MG/0.3 ML SYR SUBCUT SCH (05:44)
[2022-10-20 06:10] LABS: Hematocrit 40.4 % (35-45); Hemoglobin 13.8 g/dL (11.5-14.3); Mean Corpuscular Hemoglobin 28.1 pg (27-33); Mean Corpuscular Hgb Conc 34.2 g/dL (31-36); Mean Platelet Volume 7.9 fL (7.5-11.2); Platelet Count 298 10^3/uL (150-450); Red Blood Count 4.92 10^6/uL (3.63-4.92); Red Cell Distribution Width 13.8 % (12-17); White Blood Count 11.5 10^3/uL (3.8-11.8)
[2022-10-20 06:22] LABS: Calcium 9.4 mg/dL (8.6-10.3); Creatinine, Serum 1.44 mg/dL (0.51-0.95); Magnesium 2.2 mg/dL (1.9-2.7); Phosphorus 1.8 mg/dL (2.5-5.0); Potassium 3.4 mmol/L (3.5-5.0); eGFR CKD-EPI 37.7 (>60)
[2022-10-20 06:27] LABS: ABS Lymphocytes 0.9 10^3/uL (1.0-4.8); ABS Monocytes 1.6 10^3/uL (0.0-0.9); ABS Neutrophils 8.9 10^3/uL (1.5-7.6); Eosinophil % 0.4 %; Lymphocyte % 7.8 %
[2022-10-20] MEDS ORDERED: NS 0.9% 500 ml BAG 500 ML IV ONE (07:50)
[2022-10-20] MEDS ORDERED: Potassium Acid Phos 500 mg TAB PO ONE ×2 (07:53→13:00)
[2022-10-20] MEDS ORDERED: Potassium Chlor 20 meq TAB.ER PO ONE (07:55)
[2022-10-20] MEDS: Potassium Chlor 20 meq TAB.ER PO ONE ×2 (08:30→09:28)
[2022-10-20] MEDS: Nystatin SUSPENSION 100,000 UNITS/ML UDC PO SCH (08:59)
[2022-10-20] MEDS: Polyethylene Glycol 3350 17 GM PACKET PO SCH (08:59)
[2022-10-20] MEDS: Ondansetron 4 mg VIAL 2 MG/ML 2 ml VIAL IV PRN (09:08)
[2022-10-20] MEDS: DULoxetine DR 30 mg CAP PO SCH (09:12)
[2022-10-20] MEDS: Aspirin EC 81 mg TAB.EC (enteric coated) PO SCH (09:12)
[2022-10-20] MEDS ORDERED: KCL 20 MEQ/100 ML IVPREMIX 20 MEQ/100 ML BAG IV ONE (09:30)
[2022-10-20] MEDS ORDERED: cefTRIAXone 1 gm/50 mL D5W 1 GM/50 ML BAG IV SCH (12:00)
[2022-10-20 13:17] LABS: Urine Appearance Cloudy; Urine Bilirubin Negative (Negative); Urine Blood 2+ (Negative); Urine Color Amber; Urine Glucose Negative (Negative); Urine Ketones Negative (Negative); Urine Nitrite Negative (Negative); Urine Protein 3+(>=500 mg/dL) (Negative); Urine Specific Gravity 1.028 (1.002-1.030); Urine Urobilinogen Positive (Negative)
[2022-10-20 13:26] LABS: C Reactive Protein 56.65 mg/L (<8.01)
[2022-10-20 13:33] LABS: Urine Bacteria Absent (Absent); Urine Red Blood Cell 3+(>10/hpf) (Absent); Urine Squamous Epithelial Cell Present (Absent); Urine White Blood Cell 2+(11-20/hpf) (Absent)
[2022-10-20] MEDS: Magic MouthWash2-BEN/MAAL/LIDO/NYST 240 ML BTL (alt formulation) SWISH SPIT SCH ×2 (13:47→17:08)
[2022-10-20] MEDS ORDERED: Zosyn per Pharmacy NOTE FOLLOW UP SCH (17:00)
[2022-10-20] MEDS ORDERED: Piperacillin/Tazobac 3.375 BAG 3.375 GM/100 ML BAG IV ONE (17:15)
[2022-10-20] MEDS: NS 0.9% 1000 ml BAG 1,000 ML IV SCH (17:16)
[2022-10-20] MEDS: ZOSYN 3.375 GM Q8H per EXTENDED INFUSION IV SCH (21:41)
[2022-10-21] MEDS: Magic MouthWash2-BEN/MAAL/LIDO/NYST 240 ML BTL (alt formulation) SWISH SPIT SCH ×5 (00:57→21:59)
[2022-10-21] MEDS: ZOSYN 3.375 GM Q8H per EXTENDED INFUSION IV SCH ×3 (04:38→21:54)
[2022-10-21] MEDS: Enoxaparin 30 MG/0.3 ML SYR SUBCUT SCH (06:29)
[2022-10-21] MEDS: NS 0.9% 1000 ml BAG 1,000 ML IV SCH (06:32)
[2022-10-21 07:12] LABS: Calcium 8.2 mg/dL (8.6-10.3); Creatinine, Serum 1.44 mg/dL (0.51-0.95); Potassium 3.5 mmol/L (3.5-5.0); eGFR CKD-EPI 37.7 (>60)
[2022-10-21 07:41] LABS: ABS Eosinophils 0.1 10^3/uL (0.0-0.5); ABS Lymphocytes 0.9 10^3/uL (1.0-4.8); ABS Monocytes 1.3 10^3/uL (0.0-0.9); ABS Neutrophils 5.3 10^3/uL (1.5-7.6); ABS Nucleated RBC 0.01 10^3/ul; Hematocrit 40.4 % (35-45); Lymphocyte % 11.9 %; Mean Corpuscular Hgb Conc 34.7 g/dL (31-36); Mean Corpuscular Volume 83.5 fL (80-97); Mean Platelet Volume 8.3 fL (7.5-11.2); Nucleated Red Blood Cells % 0.2 /100 WBC (0.0-0.4); Platelet Count 259 10^3/uL (150-450); Red Blood Count 4.84 10^6/uL (3.63-4.92); White Blood Count 7.7 10^3/uL (3.8-11.8)
[2022-10-21] MEDS: Aspirin EC 81 mg TAB.EC (enteric coated) PO SCH (09:18)
[2022-10-21] MEDS: Polyethylene Glycol 3350 17 GM PACKET PO SCH (09:47)
[2022-10-21] MEDS: D5W 1/2 NS KCl 20 meq 1000 ml 1,000 ML IV SCH (17:47)
[2022-10-22] MEDS: D5W 1/2 NS KCl 20 meq 1000 ml 1,000 ML IV SCH ×2 (04:11→15:48)
[2022-10-22] MEDS: ZOSYN 3.375 GM Q8H per EXTENDED INFUSION IV SCH ×3 (04:44→22:38)
[2022-10-22] MEDS: Enoxaparin 30 MG/0.3 ML SYR SUBCUT SCH (06:05)
[2022-10-22 08:31] LABS: ABS Basophils 0.1 10^3/uL (0.0-0.1); ABS Eosinophils 0.1 10^3/uL (0.0-0.5); ABS Lymphocytes 1.3 10^3/uL (1.0-4.8); ABS Monocytes 1.2 10^3/uL (0.0-0.9); ABS Neutrophils 4.1 10^3/uL (1.5-7.6); Eosinophil % 1.1 %; Hematocrit 40.5 % (35-45); Hemoglobin 13.9 g/dL (11.5-14.3); Lymphocyte % 18.9 %; Mean Corpuscular Hemoglobin 28.7 pg (27-33); Mean Corpuscular Hgb Conc 34.3 g/dL (31-36); Mean Corpuscular Volume 83.5 fL (80-97); Mean Platelet Volume 8.1 fL (7.5-11.2); Platelet Count 267 10^3/uL (150-450); Red Blood Count 4.85 10^6/uL (3.63-4.92); Red Cell Distribution Width 13.9 % (12-17); White Blood Count 6.7 10^3/uL (3.8-11.8)
[2022-10-22 08:51] LABS: Albumin 2.9 g/dL (3.2-5.2); Albumin/Globulin Ratio 0.9 (1-3); C Reactive Protein 36.88 mg/L (<8.01); Calcium 7.9 mg/dL (8.6-10.3); Creatinine, Serum 1.33 mg/dL (0.51-0.95); Globulin 3.4 g/dL (2-4); Magnesium 1.7 mg/dL (1.9-2.7); Phosphorus 1.3 mg/dL (2.5-5.0); Potassium 3.2 mmol/L (3.5-5.0); Total Bilirubin 0.7 mg/dL (0.2-1.0); Total Protein 6.3 g/dL (6.4-8.9); eGFR CKD-EPI 41.5 (>60)
[2022-10-22] MEDS: Aspirin EC 81 mg TAB.EC (enteric coated) PO SCH (09:27)
[2022-10-22] MEDS: Magic MouthWash2-BEN/MAAL/LIDO/NYST 240 ML BTL (alt formulation) SWISH SPIT SCH ×4 (09:27→22:38)
[2022-10-22] MEDS: Polyethylene Glycol 3350 17 GM PACKET PO SCH (09:28)
[2022-10-22] MEDS ORDERED: Magnesium Sulfate IV 3 GM in NS 0.9% 100 ml BAG 100 ML IVPB ONE (11:09)
[2022-10-22] MEDS ORDERED: Potassium Acid Phos 500 mg TAB PO ONE ×2 (11:14→15:00)
[2022-10-22] MEDS ORDERED: KCL 20 MEQ/100 ML IVPREMIX 20 MEQ/100 ML BAG IV SCH (12:00)
[2022-10-22] MEDS ORDERED: Fluconazole SUSP ORALSYR 40 MG/ML PO ONE (12:00)
[2022-10-23] MEDS ORDERED: hydrALAZINE 20 mg/ml 1 ML Vial IV IV SLOW PU PRN (04:17)
[2022-10-23] MEDS: ZOSYN 3.375 GM Q8H per EXTENDED INFUSION IV SCH ×3 (04:56→22:35)
[2022-10-23 05:58] LABS: CO2 Carbon Dioxide 15 mmol/L (22-32); Calcium 7.6 mg/dL (8.6-10.3); Chloride 111 mmol/L (101-111); Magnesium 2.1 mg/dL (1.9-2.7); Sodium 135 mmol/L (135-145)
[2022-10-23 06:04] LABS: Anion Gap 9 mmol/L (2-16); Blood Urea Nitrogen 14 mg/dL (6-24); Glucose 144 mg/dL (70-100)
[2022-10-23] MEDS: Enoxaparin 30 MG/0.3 ML SYR SUBCUT SCH (06:41)
[2022-10-23 07:03] LABS: Calcium 7.8 mg/dL (8.6-10.3); Potassium 3.7 mmol/L (3.5-5.0)
[2022-10-23 07:08] LABS: Creatinine, Serum 1.29 mg/dL (0.51-0.95)
[2022-10-23 07:09] LABS: Phosphorus 1.4 mg/dL (2.5-5.0)
[2022-10-23] MEDS ORDERED: Potassium Acid Phos 500 mg TAB PO ONE (07:43)
[2022-10-23] MEDS: Aspirin EC 81 mg TAB.EC (enteric coated) PO SCH (08:56)
[2022-10-23] MEDS: Fluconazole SUSP ORALSYR 40 MG/ML PO SCH (09:01)
[2022-10-23] MEDS: Polyethylene Glycol 3350 17 GM PACKET PO SCH (09:02)
[2022-10-23] MEDS: Magic MouthWash2-BEN/MAAL/LIDO/NYST 240 ML BTL (alt formulation) SWISH SPIT SCH ×4 (09:36→22:36)
[2022-10-23] MEDS: D5W 1/2 NS KCl 20 meq 1000 ml 1,000 ML IV SCH (16:11)
[2022-10-23 19:27] LABS: Folate 13.58 ng/mL (5.90-24.80)
[2022-10-24] MEDS: D5W 1/2 NS KCl 20 meq 1000 ml 1,000 ML IV SCH ×3 (02:19→22:51)
[2022-10-24] MEDS: ZOSYN 3.375 GM Q8H per EXTENDED INFUSION IV SCH (05:16)
[2022-10-24] MEDS: Enoxaparin 30 MG/0.3 ML SYR SUBCUT SCH (05:17)
[2022-10-24 06:33] LABS: Hematocrit 40.9 % (35-45); Hemoglobin 13.9 g/dL (11.5-14.3); Mean Corpuscular Hemoglobin 28.5 pg (27-33); Mean Corpuscular Hgb Conc 33.9 g/dL (31-36); Mean Corpuscular Volume 84.2 fL (80-97); Red Blood Count 4.86 10^6/uL (3.63-4.92); Red Cell Distribution Width 14.1 % (12-17); White Blood Count 8.2 10^3/uL (3.8-11.8)
[2022-10-24 06:47] LABS: Calcium 7.6 mg/dL (8.6-10.3); Creatinine, Serum 1.16 mg/dL (0.51-0.95); Phosphorus 1.2 mg/dL (2.5-5.0); Potassium 3.3 mmol/L (3.5-5.0); eGFR CKD-EPI 48.9 (>60)
[2022-10-24] MEDS ORDERED: Potassium Phosphate IV 20 MMOL in NS 0.9% 250 ml 250 ML IVPB ONE (07:37)
[2022-10-24] MEDS ORDERED: Potassium Chloride LIQUID 20 MEQ/15 ML LIQUID PO ONE (07:38)
[2022-10-24 08:10] LABS: Magnesium 1.8 mg/dL (1.9-2.7)
[2022-10-24 08:31] LABS: ABS Basophils 0.1 10^3/uL (0.0-0.1); ABS Eosinophils 0.1 10^3/uL (0.0-0.5); ABS Lymphocytes 1.9 10^3/uL (1.0-4.8); ABS Monocytes 1.4 10^3/uL (0.0-0.9); ABS Neutrophils 4.7 10^3/uL (1.5-7.6); Eosinophil % 1.6 %; Lymphocyte % 23.4 %; Mean Platelet Volume 9.2 fL (7.5-11.2); Platelet Count 244 10^3/uL (150-450)
[2022-10-24] MEDS ORDERED: Potassium EFFERVES 25 meq TAB PO ONE (09:05)
[2022-10-24] MEDS: Magic MouthWash2-BEN/MAAL/LIDO/NYST 240 ML BTL (alt formulation) SWISH SPIT SCH ×4 (10:06→20:19)
[2022-10-24] MEDS: Aspirin EC 81 mg TAB.EC (enteric coated) PO SCH (10:36)
[2022-10-24] MEDS: Fluconazole SUSP ORALSYR 40 MG/ML PO SCH (10:38)
[2022-10-24] MEDS: Polyethylene Glycol 3350 17 GM PACKET PO SCH (10:38)
[2022-10-24] MEDS: Amoxicillin/Clavul ORALSYR 80 MG/ML (400 MG/5 ML) PO SCH (20:11)
[2022-10-24] MEDS: Potassium Acid Phos 500 mg TAB PO SCH (20:11)
[2022-10-25] MEDS: Enoxaparin 30 MG/0.3 ML SYR SUBCUT SCH (05:16)
[2022-10-25] MEDS: Potassium Acid Phos 500 mg TAB PO SCH ×3 (08:46→20:30)
[2022-10-25] MEDS: Aspirin EC 81 mg TAB.EC (enteric coated) PO SCH (08:46)
[2022-10-25] MEDS: Magic MouthWash2-BEN/MAAL/LIDO/NYST 240 ML BTL (alt formulation) SWISH SPIT SCH (08:46)
[2022-10-25] MEDS: Fluconazole SUSP ORALSYR 40 MG/ML PO SCH (08:47)
[2022-10-25] MEDS: Amoxicillin/Clavul ORALSYR 80 MG/ML (400 MG/5 ML) PO SCH ×2 (08:47→20:22)
[2022-10-25] MEDS: Polyethylene Glycol 3350 17 GM PACKET PO SCH (08:48)
[2022-10-25] MEDS: D5W 1/2 NS KCl 20 meq 1000 ml 1,000 ML IV SCH ×2 (08:51→20:18)
[2022-10-25 09:28] LABS: Calcium 7.8 mg/dL (8.6-10.3); Magnesium 1.7 mg/dL (1.9-2.7); Potassium 4.1 mmol/L (3.5-5.0)
[2022-10-25 09:34] LABS: Creatinine, Serum 1.07 mg/dL (0.51-0.95); HDL Cholesterol 32.6 mg/dL; Phosphorus 2.1 mg/dL (2.5-5.0); eGFR CKD-EPI 53.8 (>60)
[2022-10-25] MEDS: BENZOCAINE/MENTHOL (ORAJEL)20% 1 APPLIC TOP.GEL TOPICAL SCH ×3 (11:56→20:29)
[2022-10-25] MEDS ORDERED: Glycerin ADULT 2.4 gm SUPP PR ONE (15:00)
[2022-10-25] MEDS: Calcium Polycarbophil 625mg TB PO SCH (20:28)
[2022-10-26] MEDS: Enoxaparin 30 MG/0.3 ML SYR SUBCUT SCH (05:28)
[2022-10-26] MEDS: D5W 1/2 NS KCl 20 meq 1000 ml 1,000 ML IV SCH (06:20)
[2022-10-26 06:45] LABS: Creatinine, Serum 0.99 mg/dL (0.51-0.95); Magnesium 1.6 mg/dL (1.9-2.7); Phosphorus 2.4 mg/dL (2.5-5.0); Potassium 4.3 mmol/L (3.5-5.0); eGFR CKD-EPI 59.1 (>60)
[2022-10-26] MEDS ORDERED: Magnesium Sulfate 2 gm BAG 2 GM/50 ML BAG IVPB ONE (07:33)
[2022-10-26] MEDS: Potassium Acid Phos 500 mg TAB PO SCH ×3 (08:38→21:27)
[2022-10-26] MEDS: Aspirin EC 81 mg TAB.EC (enteric coated) PO SCH (08:40)
[2022-10-26] MEDS: Amoxicillin/Clavul ORALSYR 80 MG/ML (400 MG/5 ML) PO SCH ×2 (08:40→21:30)
[2022-10-26] MEDS: Calcium Polycarbophil 625mg TB PO SCH ×3 (08:40→21:27)
[2022-10-26] MEDS: Fluconazole SUSP ORALSYR 40 MG/ML PO SCH (08:40)
[2022-10-26] MEDS: BENZOCAINE/MENTHOL (ORAJEL)20% 1 APPLIC TOP.GEL TOPICAL SCH ×4 (08:40→21:28)
[2022-10-26] MEDS: Lidocaine PATCH 5% PATCH TRANSDERM SCH (08:41)
[2022-10-26 12:03] LABS: Rapid COVID-19 Molecular Undetected (Undetected)
[2022-10-27] MEDS: Enoxaparin 30 MG/0.3 ML SYR SUBCUT SCH (06:13)
[2022-10-27 07:20] LABS: Calcium 8.2 mg/dL (8.6-10.3); Creatinine, Serum 1.02 mg/dL (0.51-0.95); Phosphorus 3.8 mg/dL (2.5-5.0); Potassium 4.6 mmol/L (3.5-5.0)
[2022-10-27] MEDS ORDERED: oxyCODONE 5 mg/5 ml ORAL.SOLN UDC PO PRN (08:14)
[2022-10-27] MEDS: Lidocaine PATCH 5% PATCH TRANSDERM SCH (10:00)
[2022-10-27] MEDS: BENZOCAINE/MENTHOL (ORAJEL)20% 1 APPLIC TOP.GEL TOPICAL SCH ×6 (10:00→23:16)
[2022-10-27] MEDS: Amoxicillin/Clavul ORALSYR 80 MG/ML (400 MG/5 ML) PO SCH ×3 (10:01→23:07)
[2022-10-27] MEDS: Potassium Acid Phos 500 mg TAB PO SCH ×3 (10:02→22:56)
[2022-10-27] MEDS: Calcium Polycarbophil 625mg TB PO SCH ×3 (10:03→22:56)
[2022-10-27] MEDS: Fluconazole SUSP ORALSYR 40 MG/ML PO SCH (11:03)
[2022-10-27] MEDS: Aspirin EC 81 mg TAB.EC (enteric coated) PO SCH (13:14)
[2022-10-27] MEDS: Lansoprazole SUSP ORALSYR 3 MG/ML PO SCH (15:42)
[2022-10-28] MEDS: Enoxaparin 30 MG/0.3 ML SYR SUBCUT SCH (05:46)
[2022-10-28] MEDS: Amoxicillin/Clavul ORALSYR 80 MG/ML (400 MG/5 ML) PO SCH (08:04)
[2022-10-28] MEDS: Calcium Polycarbophil 625mg TB PO SCH ×3 (08:05→21:03)
[2022-10-28] MEDS: Potassium Acid Phos 500 mg TAB PO SCH ×3 (08:05→21:07)
[2022-10-28] MEDS: Lansoprazole SUSP ORALSYR 3 MG/ML PO SCH (10:20)
[2022-10-28] MEDS: Fluconazole SUSP ORALSYR 40 MG/ML PO SCH (10:21)
[2022-10-28] MEDS: BENZOCAINE/MENTHOL (ORAJEL)20% 1 APPLIC TOP.GEL TOPICAL SCH ×3 (10:32→16:19)
[2022-10-28] MEDS: Lidocaine PATCH 5% PATCH TRANSDERM SCH (10:32)
[2022-10-29] MEDS: BENZOCAINE/MENTHOL (ORAJEL)20% 1 APPLIC TOP.GEL TOPICAL SCH ×2 (00:03→08:46)
[2022-10-29] MEDS: Enoxaparin 30 MG/0.3 ML SYR SUBCUT SCH (06:05)
[2022-10-29 06:29] VITALS: BP 131/77
[2022-10-29] MEDS: Lidocaine PATCH 5% PATCH TRANSDERM SCH (08:45)
[2022-10-29] MEDS: Lansoprazole SUSP ORALSYR 3 MG/ML PO SCH (08:46)
[2022-10-29] MEDS: Potassium Acid Phos 500 mg TAB PO SCH (08:49)
[2022-10-29] MEDS: Calcium Polycarbophil 625mg TB PO SCH (08:49)
[2022-10-29 09:56] LABS: Rapid COVID-19 Molecular Undetected (Undetected)
== END 2022-10-29 09:50 | DRG 64 ==
LOC: EDHOLD 15:50 → ED 15:50 → SUATTDRO 22:50 → MED 10-19 00:42 → SUATTDRO 10-21 11:23
PROVIDERS: ADMIT Student in an Organized Health Care Education/Training Program; ATTEND Internal Medicine

== ENCOUNTER 2023-03-13 21:39 | Inpatient (IN) ==
[2023-03-13] MEDS ORDERED: Lactated Ringers 1000 ml BAG 1,000 ML IV ONE ×2 (22:27→23:05)
[2023-03-13 22:48] LABS: ABS Lymphocytes 1.2 10^3/uL (1.0-4.8); ABS Monocytes 0.3 10^3/uL (0.0-0.9); ABS Neutrophils 5.4 10^3/uL (1.5-7.6); ABS Nucleated RBC 0.01 10^3/ul; Hematocrit 40.8 % (35-45); Hemoglobin 12.7 g/dL (11.5-14.3); Mean Corpuscular Hemoglobin 26.5 pg (27-33); Mean Corpuscular Volume 85.4 fL (80-97); Mean Platelet Volume 9.3 fL (7.5-11.2); Nucleated Red Blood Cells % 0.1 %/100WBC (0.0-0.8); Platelet Count 486 10^3/uL (150-450); Red Blood Count 4.77 10^6/uL (3.63-4.92); White Blood Count 6.9 10^3/uL (3.8-11.8)
[2023-03-13] MEDS ORDERED: Norepinephrine 4 MG/250mL D5W 4,000 MCG/250 ML BAG IV ONE (23:07)
[2023-03-13 23:16] LABS: Albumin 3.3 g/dL (3.2-5.2); Albumin/Globulin Ratio 0.8 (1-3); Calcium 10.1 mg/dL (8.6-10.3); Creatinine, Serum 2.93 mg/dL (0.51-0.95); Globulin 4.3 g/dL (2-4); Potassium 4.7 mmol/L (3.5-5.0); Total Bilirubin 0.7 mg/dL (0.2-1.0); Total Protein 7.6 g/dL (6.4-8.9)
[2023-03-13] MEDS ORDERED: Norepinephrine 4 MG/250mL D5W 4,000 MCG/250 ML BAG IV SCH (23:45)
[2023-03-14 00:15] VITALS: BP 55/39
== END 2023-03-13 23:56 | disposition expired | DRG 871 ==
LOC: ED 21:39 → EDHOLD 23:13 → ICU 23:35
PROVIDERS: ADMIT Internal Medicine Pulmonary Disease; ATTEND Internal Medicine Pulmonary Disease